=== PATIENT | female | born 1950 | race Caucasian/White ===

== ENCOUNTER → 2018-05-18 | Outpatient (CLI) | payer MEDICARE, OTHER ==
--- NOTE | 2018-05-19 09:19 | MM ---
Reason for exam: screening (asymptomatic). Last mammogram was performed 1 year and 9 months ago. History: Patient is postmenopausal. Took hormonal contraceptives for 1 year beginning at age 21. Physical Findings: A clinical breast exam by your physician is recommended on an annual basis and results should be correlated with mammographic findings. MG Screening Mammo w CAD Bilateral CC and MLO view(s) were taken. Prior study comparison: August 07, 2016, bilateral MG screening mammo w CAD. July 04, 2014, bilateral MG screening mammo w CAD. There are scattered fibroglandular densities. Benign calcifications bilaterally. There is chronic nodularity in the right breast. No significant changes when compared with prior studies. ASSESSMENT: Benign, BI-RAD 2 RECOMMENDATION: Routine screening mammogram of both breasts in 1 year.
--- NOTE | 2018-05-19 18:17 | BD ---
EXAMINATION TYPE: Axial Bone Density DATE OF EXAM: 05/18/2018 COMPARISON: NONE CLINICAL HISTORY: 67-year-old female asymptomatic postmenopausal screening Height: 70 Weight: 229.9 FRAX RISK QUESTIONS: Alcohol (3 or more units per day): no Family History (Parent hip fracture): no Glucocorticoids (More than 3mos): no (Ex: prednisone, prednisolone, methylprednisolone, dexamethasone, and hydrocortisone). History of Fracture in Adulthood: no Secondary Osteoporosis: 1. Type 1 Diabetes: no 2. Hyperthyroidism: no 3. Menopause before 45: unsure 4. Malnutrition: no 5. Chronic liver disease: no Rheumatoid Arthritis: no Current Tobacco Use: yes RISK FACTORS HISTORY OF: Family History of Osteoporosis: no Active: yes Diet low in dairy products/other sources of calcium: yes Postmenopausal woman: unsure Lost more than 2 inches in height since high school: no MEDICATIONS: Lotrel Additional History: EXAM MEASUREMENTS: Bone mineral densitometry was performed using the Jalousier System. Bone mineral density as measured about the Lumbar spine is: ----- L1-L4(G/cm2): 1.467 T Score Values are as follows: ----- L2: 2.5 ----- L3: 3.5 ----- L4: 1.8 ----- L1-L4: 2.4 Bone mineral density : baseline Bone mineral density about the R hip (g/cm2): 0.782 Bone mineral density about the L hip (g/cm2): 0.821 T Score values are as follows: -----R Neck: -1.8 -----L Neck: -1.6 -----R Total: -1.4 -----L Total: -1.0 Bone mineral density : baseline IMPRESSION: Osteopenia (T Score between -2.5 and -1). There is slightly increased risk of fracture and the patient may be considered for treatment. Re-Screen 2-5 years. NOTE: T-SCORE=SD OF THE YOUNG ADULT MEAN.
== END ==
LOC: RADMAMWWP 10:20
PROVIDERS: ATTEND Internal Medicine
DX: Z12.31 Encounter for screening mammogram for malignant neoplasm of breast (principal); M85.80 Other specified disorders of bone density and structure, unspecified site; Z78.0 Asymptomatic menopausal state
CPT/HCPCS: 77067; 77080

== ENCOUNTER → 2019-09-15 | Outpatient (CLI) | payer MEDICARE ==
--- NOTE | 2019-09-15 15:04 | CTL ---
EXAMINATION TYPE: CT Low Dose Lung DATE OF EXAM ORDERED: 09/15/2019 HISTORY: 68-year-old female Personal history of tobacco use. Lung cancer screening CT DLP: [address] CTDI: 2.56 mGy Automated exposure control for dose reduction was used. SCREENING VISIT: Baseline COMPARISON: 12/08/2009 TECHNIQUE: Low dose computed tomography scan was performed through the chest. Coronal and sagittal re constructions performed. Additional coronal MIP reconstruction was generated. CT DIAGNOSTIC QUALITY: Limited, but interpretable FINDINGS: Heart normal size without pericardial effusion. Scattered three-vessel coronary artery calcifications are present. Borderline ectatic ascending aorta at 3.6 cm with moderate atherosclerotic arch calcifications and co nventional arch vessel branching anatomy. No thoracic lymphadenopathy by CT size criteria. Borderline to mildly enlarged caliber to the main right and left pulmonary arteries and 2.6 cm each m ay reflect underlying pulmonary arterial hypertension. Mild to moderate bronchial wall thickening. No consolidation or pleural effusion. No suspicious pulmonary nodule or mass. Visualized upper abdomen shows no gross abnormal. Bones: Moderate degenerative disc disease throughout. Bone island within the mid thoracic spine is un changed. DISH. IMPRESSION: 1. Lung RADS 1 - negative; no suspicious pulmonary nodule or mass. 2. Mild to moderate bronchial wall thickening could represent bronchitis or chronic asthma. 3. Possible underlying pulmonary arterial hypertension. 4. CAD. RECOMMENDATION: 1. Continue annual low-dose lung cancer screening CT. 2. Smoking cessation. FOLLOW UP CT CHEST RECOMMENDATION: [address] LUNG RAD: Lung-Rad 1 Negative
== END | disposition home or self-care (01) ==
LOC: RADCTMAIN 11:04
PROVIDERS: ATTEND Internal Medicine
DX: J98.09 Other diseases of bronchus, not elsewhere classified (principal); I25.10 Atherosclerotic heart disease of native coronary artery without angina pectoris; Z87.891 Personal history of nicotine dependence

== ENCOUNTER → 2020-03-02 | Outpatient (CLI) | payer MEDICARE ==
--- NOTE | 2020-03-03 09:52 | MM ---
Reason for exam: screening (asymptomatic). Last mammogram was performed 1 year and 9 months ago. History: Patient is postmenopausal. Took hormonal contraceptives for 1 year beginning at age 21. Physical Findings: A clinical breast exam by your physician is recommended on an annual basis and results should be correlated with mammographic findings. MG Screening Mammo w CAD Bilateral CC and MLO view(s) were taken. XCCL view(s) were taken of the right breast. Prior study comparison: May 18, 2018, bilateral MG screening mammo w CAD. August 07, 2016, bilateral MG screening mammo w CAD. The breast tissue is heterogeneously dense. This may lower the sensitivity of mammography. There is no discrete abnormality. No significant changes when compared with prior studies. ASSESSMENT: Negative, BI-RAD 1 RECOMMENDATION: Routine screening mammogram of both breasts in 1 year.
== END | disposition home or self-care (01) ==
LOC: RADMAMWWP 07:25
PROVIDERS: ATTEND Internal Medicine
DX: Z12.31 Encounter for screening mammogram for malignant neoplasm of breast (principal)
CPT/HCPCS: 77067

== ENCOUNTER → 2020-07-31 | Outpatient (CLI) | payer MEDICARE ==
--- NOTE | 2020-07-31 15:38 | US ---
EXAMINATION TYPE: US abdomen limited DATE OF EXAM: 07/31/2020 COMPARISON: NONE CLINICAL HISTORY: R10.11 right upper quadrant pain. RUQ pain, nausea x 6 days EXAM MEASUREMENTS: Liver Length: 18.3 cm Gallbladder Wall: 0.2 cm CBD: 0.4 cm Right Kidney: 11.8 x 3.8 x 4.3 cm Pancreas: Tail obscured by overlying bowel gas Liver: wnl Gallbladder: echogenic foci noted posterior wall Evidence for sonographic Chauhan's sign: no CBD: wnl Right Kidney: no evidence of hydronephrosis or mass IMPRESSION: Adherent gallstone or polyp within the gallbladder.
== END | disposition home or self-care (01) ==
LOC: RADUSWWP 14:58
PROVIDERS: ATTEND Internal Medicine
DX: R10.11 Right upper quadrant pain (principal)
CPT/HCPCS: 76705

== ENCOUNTER 2020-08-08 04:35 | Emergency (ER) | payer MEDICARE ==
[2020-08-08] MEDS ORDERED: KETOROLAC 15 MG/ML 1 ML VIAL IVP STA (04:55)
[2020-08-08] MEDS ORDERED: MORPHINE SULFATE 4 MG/ML SYRINGE IV STA (04:55)
[2020-08-08] MEDS ORDERED: SODIUM CHLORIDE 0.9% 1,000 ML IV STA (04:55)
[2020-08-08] MEDS ORDERED: ONDANSETRON 4 MG/2 ML VIAL IVP STA (04:55)
--- NOTE | 2020-08-08 05:03 | ED ---
Recheck HPI <Homero Fermin - Last Filed: 08/08/20 09:10> - General Source: patient, RN notes reviewed, old records reviewed Mode of arrival: wheelchair Limitations: no limitations - History of Present Illness MD Complaint: other (Right upper quadrant abdominal pain) -: days(s) Returns Today for: persistent/worsening pain related to initial visit Symptoms Since Prior Visit: worsening pain Associated Symptoms: none Treatments Prior to Arrival: Given Pain Meds on <Stanley Santoro - Last Filed: 08/09/20 03:20> - General Chief Complaint: Abdominal Pain Stated Complaint: abd pain Time Seen by Provider: 08/08/20 04:36 - History of Present Illness Initial Comments: This is a 61-year-old female DF for evaluation of dull pain epigastric and right upper quadrant abdominal pain with history of gallbladder disease. Patient has had recent history of gallbladder evaluation had ultrasound of right upper quadrant with gallbladder disease. Patient has severe pain at night worse and has been before. Otherwise positive nausea no fevers. No history of surgery no other complaints (Stanley Santoro) - Related Data Home Medications Medication Instructions Recorded Confirmed Dorzolamide-Timol 2.23%/0.68% 1 drop RIGHT EYE BID 08/08/20 08/08/20 [Cosopt] Latanoprost [Xalatan 0.005%] 1 drop RIGHT EYE HS 08/08/20 08/08/20 acetaZOLAMIDE [acetaZOLAMIDE ER] 500 mg PO DAILY 08/08/20 08/08/20 amLODIPine BESYLATE/BENAZEPRIL 1 cap PO DAILY 08/08/20 08/08/20 [Lotrel 10-20 MG] traMADol HCl [Ultram] 50 mg PO BID PRN 08/08/20 08/08/20 Allergies Allergy/AdvReac Type Severity Reaction Status Date / Time bee venom protein (honey bee) Allergy Rash/Hives Verified 08/08/20 08:21 Review of Systems ROS Other: All systems not noted in ROS Statement are negative. <Homero Fermin - Last Filed: 08/08/20 09:10> ROS Other: All systems not noted in ROS Statement are negative. <Stanley Santoro - Last Filed: 08/09/20 03:20> ROS Statement: Those systems with pertinent positive or pertinent negative responses have been documented in the HPI. Past Medical History Past Medical History: Hypertension, Osteoarthritis (OA) History of Any Multi-Drug Resistant Organisms: None Reported Past Surgical History: Hysterectomy Past Psychological History: Depression Smoking Status: Former smoker Past Alcohol Use History: Rare Past Drug Use History: None Reported <Stanley Santoro - Last Filed: 08/09/20 03:20> General Exam Limitations: no limitations General appearance: alert, in no apparent distress Head exam: Present: atraumatic, normocephalic, normal inspection Eye exam: Present: normal appearance, PERRL, EOMI. Absent: scleral icterus, conjunctival injection, periorbital swelling ENT exam: Present: normal exam, mucous membranes moist Neck exam: Present: normal inspection. Absent: tenderness, meningismus, lymph adenopathy Respiratory exam: Present: normal lung sounds bilaterally. Absent: respiratory distress, wheezes, rales, rhonchi, stridor Cardiovascular Exam: Present: regular rate, normal rhythm, normal heart sounds. Absent: systolic murmur, diastolic murmur, rubs, gallop, clicks GI/Abdominal exam: Present: soft, tenderness (Right upper quadrant), normal bowel sounds. Absent: distended, guarding, rebound, rigid Extremities exam: Present: normal inspection, full ROM, normal capillary refill. Absent: tenderness, pedal edema, joint swelling, calf tenderness Back exam: Present: normal inspection Neurological exam: Present: alert, oriented X3, CN II-XII intact Psychiatric exam: Present: normal affect, normal mood Skin exam: Present: warm, dry, intact, normal color. Absent: rash <Stanley Santoro - Last Filed: 08/09/20 03:20> Course <Homero Fermin - Last Filed: 08/08/20 09:10> <Stanley Santoro - Last Filed: 08/09/20 03:20> Vital Signs 08/08/20 08/08/20 08/08/20 04:41 06:30 08:08 Temperature 97.9 F 98.0 F 97.4 F L Pulse Rate 58 L 62 60 Respiratory 16 16 18 Rate Blood Pressure 190/115 182/98 188/95 O2 Sat by Pulse 97 98 97 Oximetry 08/08/20 08:58 Temperature Pulse Rate 50 L Respiratory 18 Rate Blood Pressure 165/95 O2 Sat by Pulse 98 Oximetry - Reevaluation(s) Reevaluation #1: 08/08/20 09:11 No pain, eager for discharge. (Homero Fermin) Medical record is reviewed Patient has significant improvement in symptoms Patient has no recent change in complaints Patient and mother informed of results and questions have been answered Patient feels good for discharge (Stanley Santoro) Medical Decision Making - Lab Data Result diagrams: 08/08/20 05:09 08/08/20 05:09 <Homero Fermin - Last Filed: 08/08/20 09:10> - Lab Data Result diagrams: 08/08/20 05:09 08/08/20 05:09 <Stanley Santoro - Last Filed: 08/09/20 03:20> - Medical Decision Making 61-year-old female presenting with right upper quadrant abdominal pain. I did receive this patient in sign out awaiting CT results. She had a recent gallbladder ultrasound which did show concern for either polyp versus cholelithiasis. CT performed, shows a worsening of the liver suggestive of possible cirrhosis as well as a 3.8 cm abdominal aortic aneurysm without complication. Ultrasound is repeated which shows similar findings, no acute cholecystitis, no dilatation of the common bile duct. Patient is very eager for discharge. She has an appointment with general surgery within the week. She will also follow up with her primary care physician and gastric neurology. She will inform them of this abdominal aortic aneurysm for monitoring. (Homero Fermin) - Lab Data Lab Results 08/08/20 08/08/20 Range/Units 05:09 05:09 WBC 8.5 (3.8-10.6) k/uL RBC 4.85 (3.80-5.40) m/uL Hgb 14.7 (11.4-16.0) gm/dL Hct 44.5 (34.0-46.0) % MCV 91.7 (80.0-100.0) fL MCH 30.3 (25.0-35.0) pg MCHC 33.1 (31.0-37.0) g/dL RDW 12.9 (11.5-15.5) % Plt Count 208 (150-450) k/uL MPV 8.3 Neutrophils % 73 % Lymphocytes % 17 % Monocytes % 5 % Eosinophils % 3 % Basophils % 1 % Neutrophils # 6.2 (1.3-7.7) k/uL Lymphocytes # 1.5 (1.0-4.8) k/uL Monocytes # 0.4 (0-1.0) k/uL Eosinophils # 0.2 (0-0.7) k/uL Basophils # 0.1 (0-0.2) k/uL Sodium 139 (137-145) mmol/L Potassium 3.6 (3.5-5.1) mmol/L Chloride 107 (98-107) mmol/L Carbon Dioxide 26 (22-30) mmol/L Anion Gap 6 mmol/L BUN 11 (7-17) mg/dL Creatinine 0.79 (0.52-1.04) mg/dL Est GFR (CKD-EPI)AfAm 90 (>60 ml/min/1.73 sqM) Est GFR (CKD-EPI)NonAf 78 (>60 ml/min/1.73 sqM) Glucose 113 H (74-99) mg/dL Calcium 9.2 (8.4-10.2) mg/dL Total Bilirubin 0.8 (0.2-1.3) mg/dL AST 21 (14-36) U/L ALT 19 (4-34) U/L Alkaline Phosphatase 65 (38-126) U/L Total Protein 6.7 (6.3-8.2) g/dL Albumin 4.0 (3.5-5.0) g/dL Amylase 31 (30-110) U/L Lipase 36 (23-300) U/L Disposition Is patient prescribed a controlled substance at d/c from ED?: No Time of Disposition: 09:12 <Homero Fermin N - Last Filed: 08/08/20 09:10> <Stanley Santoro - Last Filed: 08/09/20 03:20> Clinical Impression: Abdominal pain, Abdominal aortic aneurysm (AAA), Biliary colic Disposition: HOME SELF-CARE Condition: Good Instructions (If sedation given, give patient instructions): Nonruptured Abdominal Aortic Aneurysm (DC), Abdominal Pain (ED) Additional Instructions: Please inform your primary care physician of the abdominal aortic aneurysm for monitoring. Please follow-up with general surgery regarding your right upper quadrant abdominal pain. Referrals: Edy Allen MD [Primary Care Provider] - 1-2 days Teodora Aguilera MD [STAFF PHYSICIAN] - 1-2 days
[2020-08-08 05:15] LABS: Basophils # (A) 0.1 k/uL (0-0.2); Basophils % (A) 1 %; Eosinophils # (A) 0.2 k/uL (0-0.7); Eosinophils % (A) 3 %; HCT 44.5 % (34.0-46.0); HGB 14.7 gm/dL (11.4-16.0); Lymphocytes # (A) 1.5 k/uL (1.0-4.8); Lymphocytes % (A) 17 %; MCH 30.3 pg (25.0-35.0); MCHC 33.1 g/dL (31.0-37.0); MCV 91.7 fL (80.0-100.0); Mean Platelet Volume 8.3; Monocytes # (A) 0.4 k/uL (0-1.0); Monocytes % (A) 5 %; Neutrophils # (A) 6.2 k/uL (1.3-7.7); Neutrophils % (A) 73 %; Platelet Count 208 k/uL (150-450); RBC 4.85 m/uL (3.80-5.40); RDW 12.9 % (11.5-15.5); WBC 8.5 k/uL (3.8-10.6)
[2020-08-08 05:24] LABS: Calcium 9.2 mg/dL (8.4-10.2); Potassium 3.6 mmol/L (3.5-5.1); Total Bilirubin 0.8 mg/dL (0.2-1.3); Total Protein 6.7 g/dL (6.3-8.2)
--- NOTE | 2020-08-08 05:45 | CT ---
EXAM: CT Abdomen and Pelvis With Intravenous Contrast CLINICAL HISTORY: ITS.REASON CT Reason: pain TECHNIQUE: Axial computed tomography images of the abdomen and pelvis with intravenous contrast. CTDI is 40.77 mGy and DLP is 1604.7 mGy-cm. This CT exam was performed using one or more of the following dose reduction techniques: automated exposure control, adjustment of the mA and/or kV according to patient size, and/or use of iterative reconstruction technique. COMPARISON: 07/31/2020 FINDINGS: Lung bases: No mass. No consolidation. ABDOMEN: Liver: Enlarged with mild nodularity. Gallbladder and bile ducts: Unremarkable. Pancreas: Unremarkable. Spleen: Unremarkable. Adrenals: Unremarkable. Kidneys and ureters: No hydronephrosis. Stomach and bowel: No bowel obstruction. No bowel wall thickening. Mild stool burden in the right large bowel. PELVIS: Appendix: No evidence of appendicitis. Bladder: Unremarkable. Reproductive: Removed. ABDOMEN and PELVIS: Intraperitoneal space: Unremarkable. Bones/joints: No acute fractures. Soft tissues: Unremarkable. Vasculature: 3.8 cm saccular aortic aneurysm. Lymph nodes: No enlarged lymph nodes. IMPRESSION: 3.8 cm saccular aortic aneurysm. Mildly nodular liver suggestive of early cirrhotic morphology.
[2020-08-08 08:11] VITALS: RESP 18; TEMP 97.4
[2020-08-08 08:58] VITALS: BP 165/95; PULSE 50
--- NOTE | 2020-08-08 09:03 | US ---
EXAMINATION TYPE: US gallbladder DATE OF EXAM: 08/08/2020 COMPARISON: CT 08/08/2020, ultrasound abdomen 07/31/2020 CLINICAL HISTORY: ab pain. abd pain on and off for 2 weeks, nausea EXAM MEASUREMENTS: Liver Length: 18.4 cm Gallbladder Wall: 0.2 cm CBD: 0.5 cm Right Kidney: 10.9 x 4.6 x 4.9 cm Pancreas: wnl Liver: subcostal bowel gas, intercostal views show somewhat coarse liver echotexture. Gallbladder: dependent debris that was mobile, possible small sand-like stones seen. Evidence for sonographic Chauhan's sign: no CBD: wnl Right Kidney: wnl There is no ascites. IMPRESSION: There are some limitations to the exam. There may be underlying hepatocellular disease. P ossible tumefactive sludge or small gallstones as noted on prior ultrasound.
== END 2020-08-08 09:15 | disposition home or self-care (01) ==
LOC: EC 04:35
DX: I71.4 Abdominal aortic aneurysm, without rupture (principal); K80.50 Calculus of bile duct without cholangitis or cholecystitis without obstruction; I10 Essential (primary) hypertension; M19.90 Unspecified osteoarthritis, unspecified site; Z79.899 Other long term (current) drug therapy; Z87.891 Personal history of nicotine dependence; Z91.030 Bee allergy status; Z90.710 Acquired absence of both cervix and uterus
CPT/HCPCS: 36415; 80053; 82150; 83690; 85025; 76705; 74177; 99285; 96374; 96375 ×2; 96361; J2270; J2405; J1885; Q9967

== ENCOUNTER → 2021-01-11 | Outpatient (CLI) | payer MEDICARE ==
--- NOTE | 2021-01-11 13:50 | CT ---
EXAMINATION TYPE: CT angio abd aorta w/Runoff DATE OF EXAM: 01/11/2021 HISTORY: Abdominal aortic aneurysm without rupture CT DLP: 2532mGycm Automated Exposure Control for Dose Reduction was Utilized. CONTRAST: CT scan of the abdomen and pelvis is performed without and with IV Contrast, patient injected with 10 0 ml mL of Isovue 370. Three-dimensional reconstructions performed on an alternate workstation. COMPARISON: CT 08/08/2020 FINDINGS: Infrarenal abdominal aorta measures approximately 4.1 cm in greatest AP dimension as compar ed to prior exam when it measured approximately 3.9 cm. Atheromatous changes are present. Common deneen c arteries show stable appearance and are not aneurysmal but show extensive atheromatous change. Inte rnal and external iliac arteries are patent, common femoral, deep and superficial femoral arteries ar e patent, the left superficial femoral artery somewhat more narrow proximally as compared to the righ t. The distal left superficial femoral artery is occluded at the level of Huy's canal, there is re constitution of the popliteal artery above the level of the knee. Trifurcation vessels are patent pro ximally on the left. At the level of the mid leg the anterior tibial artery and the left does not tex w enhancement, peroneal and posterior tibial arteries are thought to be enhancing peripherally, poste rior tibial artery seen to enhance into the foot. On the right the popliteal artery shows atheromatou s change however there is normal enhancement, trifurcation vessels enhance at least to the level of t he mid leg, posterior tibial artery is seen to enhance distally into the foot. No additional aneurysm . LUNG BASES: No significant interval change is appreciated. LIVER/GB: No significant change is appreciated, patient is post cholecystectomy. PANCREAS: No significant abnormality is seen. SPLEEN: No significant abnormality is seen. ADRENALS: No significant abnormality is seen. KIDNEYS: No significant abnormality is seen. BOWEL: No significant interval change is seen. UTERUS/ADNEXA: Uterus is not seen, ovaries remain in place and are unremarkable. LYMPH NODES: No greater than 1cm abdominal or pelvic lymph nodes are appreciated. OSSEOUS STRUCTURES: Degenerative disc changes are noted with facet arthropathy in the lower lumbar sp ine OTHER: Umbilical hernia contains fat.. IMPRESSION: Infrarenal abdominal aortic aneurysm. Peripheral vascular occlusive disease. Postop mary ellen mayen
== END | disposition home or self-care (01) ==
LOC: RADCTMAIN 10:12
PROVIDERS: ATTEND Surgery
DX: I71.4 Abdominal aortic aneurysm, without rupture (principal); I73.9 Peripheral vascular disease, unspecified
CPT/HCPCS: 82565; 84520; 75635; 36415; Q9967

== ENCOUNTER → 2021-03-08 | Outpatient (CLI) | payer MEDICARE ==
[2021-03-08 15:51] LABS: Basophils % (A) 0 %; Eosinophils # (A) 0.3 k/uL (0-0.7); Eosinophils % (A) 3 %; HCT 45.1 % (34.0-46.0); HGB 13.9 gm/dL (11.4-16.0); Lymphocytes # (A) 2.5 k/uL (1.0-4.8); Lymphocytes % (A) 28 %; MCH 29.7 pg (25.0-35.0); MCHC 30.9 g/dL (31.0-37.0); MCV 96.1 fL (80.0-100.0); Mean Platelet Volume 8.8; Monocytes # (A) 0.5 k/uL (0-1.0); Monocytes % (A) 5 %; Neutrophils # (A) 5.6 k/uL (1.3-7.7); Neutrophils % (A) 63 %; Platelet Count 244 k/uL (150-450); RBC 4.69 m/uL (3.80-5.40); RDW 12.9 % (11.5-15.5); WBC 8.9 k/uL (3.8-10.6)
[2021-03-08 16:02] LABS: Potassium 4.3 mmol/L (3.5-5.1)
== END | disposition home or self-care (01) ==
LOC: LABPAT 14:47
PROVIDERS: ATTEND Surgery
DX: Z01.812 Encounter for preprocedural laboratory examination (principal); I71.4 Abdominal aortic aneurysm, without rupture
CPT/HCPCS: 36415; 80051; 82565; 84520; 85025

== ENCOUNTER → 2021-03-29 | Day surgery (SDC) | payer MEDICARE ==
[~2021-03-29] MED LIST: ALPRAZolam 0.25 MG TAB PO PRN; ALPRAZolam 0.5 MG TAB PO PRN; LACTATED RINGERS 1,000 ML IV SCH; SODIUM CHLORIDE 0.9% 1,000 ML in EMPTY BAG 1 BAG IV ONE; ZOLPIDEM 5 MG TAB PO PRN; ceFAZolin 1 GM in SODIUM CHLORIDE 0.9% 250 ML IRRIGATION PRN
[2021-03-29 10:31] VITALS: BP 153/73; PULSE 55; RESP 16; TEMP 98.2
== END ==
LOC: OR 10:05 → EDSTATUS 12:00
PROVIDERS: ATTEND Surgery
DX: Z53.9 Procedure and treatment not carried out, unspecified reason (principal)
CPT/HCPCS: 86850; 86900; 86901

== ENCOUNTER 2021-04-05 09:39 | Inpatient (IN) | payer MEDICARE ==
[2021-04-03 09:44] VITALS: BMI 34.8
[~2021-04-05 09:39] MED LIST changes: -LACTATED RINGERS 1,000 ML IV SCH
[2021-04-05] MEDS ORDERED: SODIUM CHLORIDE 0.9% 1,000 ML IV ONE (09:57)
[2021-04-05] MEDS ORDERED: LIDOCAINE 1% INJ 10MG/ML (20 ML MDV) ONE ×2 (11:51→12:00)
[2021-04-05] MEDS ORDERED: PROTAMINE SULFATE 10 MG/ML 5 ML VIAL IV ONE (12:00)
[2021-04-05] MEDS ORDERED: ROCURONIUM 10 MG/ML (5 ML VIAL) IV ONE (12:00)
[2021-04-05] MEDS ORDERED: SUCCINYLCHOLINE CHLORIDE 100 MG/5 ML SYR IV ONE (12:00)
[2021-04-05] MEDS ORDERED: MIDAZOLAM 2 MG/2 ML VIAL ONE (12:00)
[2021-04-05] MEDS ORDERED: ePHEDrine SULFATE/0.9% NACL/PF 50 MG/5 ML SYRINGE IV ONE (12:00)
[2021-04-05] MEDS ORDERED: HEPARIN SODIUM,PORCINE 10,000 UNIT/ML 1 ML VIAL ONE (12:00)
[2021-04-05] MEDS ORDERED: PROPOFOL 10 MG/ML 20 ML VIAL IV ONE (12:00)
[2021-04-05] MEDS ORDERED: fentaNYL (PF) 50 MCG/ML 2 ML AMP ONE (12:00)
[2021-04-05] MEDS ORDERED: SODIUM CHLORIDE 0.9% 800 ML IV ONE (12:15)
--- NOTE | 2021-04-05 12:16 | P.ANPRN ---
Procedure Note - Anesthesia - Invasive Line Right Arterial Line Time Out Performed: Yes (1104) Date of Procedure: 04/05/21 Time of Procedure: 11:05 Location of Patient: PreOp Preparation: Sterile Prep, Sterile Dressing Arterial Line Location: Radial Ultrasound Used: Yes Purpose - Visualization and Identification of Vasculature: Yes Needle Guage: 20g Image Stored and Saved: Yes Narrative: Central line placement per sterile protocol utilized.
[2021-04-05] MEDS ORDERED: IOPAMIDOL-370 50ML BTL INJ ONE (14:21)
[2021-04-05] MEDS ORDERED: IOPAMIDOL-250 100ML BTL INTRAARTER ONE ×2 (14:21)
[2021-04-05] MEDS ORDERED: IOPAMIDOL-370 100ML BTL INJ ONE (14:21)
[2021-04-05] MEDS ORDERED: LACTATED RINGERS 1,000 ML IV ONE (14:37)
[2021-04-05] MEDS ORDERED: HYDROcodone/APAP 5-325MG 1 EACH TAB PO PRN (15:10)
[2021-04-05] MEDS ORDERED: DOCUSATE 100 MG CAP PO PRN (15:10)
[2021-04-05] MEDS ORDERED: MAG HYDROX/AL HYDROX/SIMETH 30 ML CUP PO PRN (15:10)
[2021-04-05] MEDS ORDERED: ALPRAZolam 0.25 MG TAB PO PRN (15:10)
--- NOTE | 2021-04-05 15:10 | P.OP ---
Date of Procedure: 04/05/21 Preoperative Diagnosis: Saccular 4.1 cm infrarenal abdominal aortic aneurysm Postoperative Diagnosis: Same. Procedure(s) Performed: #1: Ultrasound-guided cannulation femoral artery, bilaterally. #2 percutaneous access and closure of the femoral artery. #3 placement of aortobiiliac endograft ([employer]tronic Endurate II). Anesthesia: HERACLIO Surgeon: Artie Licona Estimated Blood Loss (ml): 30 Pathology: none sent Condition: stable Disposition: PACU Indications for Procedure: Patient is a 70-year-old female who was found be suffering from a 4.1 cm infrarenal dimeric aneurysm which was saccular in morphology. Because the saccular nature of the aneurysm the patient was offered repair. She had undergone CT angiogram was felt to be a good candidate for endovascular repair. The procedure, risk and benefits were discussed with the patient and the patient wished to proceed Description of Procedure: Patient was brought to the cardiac recyclable materials sorter, placed in the supine position and administered general endotracheal anesthesia delivered by the department of anesthesiology. Patient received intravenously administered prophylactic antibiotics in the perioperative phase. The patient's lower thoracic, abdominal/pelvic as well as bilateral inguinal areas were sterilely prepped and draped in usual manner. Lucio catheter then placed to gravity drainage. Utilizing ultrasound the right common femoral artery was identified. Multipurpose needle was utilized to cannulate the artery under ultrasound guidance. Once cannulated Softip guidewire is advanced into the artery. The needle was withdrawn and a 6-Mongolian sheath was placed. Subsequently utilizing standard appointment to Perclose devices were placed and an 8-Mongolian sheath was then positioned. A similar procedure was performed on the contralateral side. Patient was systemically heparinized. From the right a pigtail catheter was advanced to the L1 level. From the left main body Endurate stent graft measuring 25 x 14 x 103 mm was selected and advanced over the guidewire. Angiogram was performed through the pigtail catheter and the origin of the renal arteries was noted bilaterally the stent graft was then deployed until the gate opened. Subsequently the pigtail catheter was exchanged over a guidewire for an angled glide catheter and this was utilized to cannulate the gate. Aparnaergiuliana guidewire was advanced and positioned at the aortic knob. The pigtail catheter was exchanged for the angled glide catheter and an angiogram of the right iliac artery was performed. The origin of the internal iliac artery was identified. A 16 x 13 x 146 mm graft was selected and advanced over the guidewire and deployed. The deployment catheter was exchanged for a 12-Mongolian sheath. Attention was turned to the main body. This was then fully deployed in the main body delivery system was exchanged for a 16-Mongolian sheath which was advanced over the guidewire. Dilator was withdrawn and a pigtail catheter was advanced over the guidewire. Guidewire was withdrawn and a angiogram was performed. The origin of the internal iliac was noted and a 16 x 13 x 124 mm limb was selected and deployed without incident. Sargent balloon was then utilized to dilate the stent graft. There was some narrowing at the aortic bifurcation that was treated with 10 mm x 40 mm balloon dilation catheters utilizing a kissing technique. Subsequently the pigtail catheter was readvanced and completion angiogram was performed. This demonstrated a. Delayed type II lumbar endoleak. There is no evidence of type I or type III endoleak. Was felt that this type II endoleak would eventually thrombose once heparinization was reversed. Patient subsequently was administered 25 mg of protamine. With the above findings noted on the left the sheath was withdrawn and the Perclose was utilized to achieve arterial closure. A similar procedures performed on the contralateral side. Appropriate dressings were applied. Patient tolerated the procedure well awoke without apparent complication was transferred to the recovery area satisfactory and stable condition. Both feet were pink and warm at the completion of the procedure.
--- NOTE | 2021-04-05 16:26 | IR ---
EXAMINATION TYPE: IR stent intravas non coronary DATE OF EXAM: 04/05/2021 CLINICAL HISTORY: AAA TECHNIQUE: Fluoroscopy. COMPARISON: None. FINDINGS: Fluoroscopic guidance was provided during angiogram with stent graft insertion procedure p erformed by Dr. Sorenson. A total of 16.4 minutes of fluoroscopic time was utilized during the proce dure and 0 spot images are saved to PACS. IMPRESSION: As Above.
[2021-04-05] MEDS ORDERED: hydrALAZINE HCL 20 MG/ML 1 ML VIAL IVP PRN (16:41)
[2021-04-05 16:57] LABS: Glucose,Whole Blood 87 mg/dL (75-99)
--- NOTE | 2021-04-05 17:00 | P.CNPUL ---
History of Present Illness Consult date: 04/05/21 Requesting physician: Artie Licona Reason for consult: other Chief complaint: 4.9 cm infrarenal abdominal aortic aneurysm History of present illness: This is a 70-year-old white female patient with a known history of 4.1 cm infrarenal abdominal aortic aneurysm. Because of the saccular nature of the aneurysm patient was offered repair. Patient had undergone CT angiogram and was felt to be a good candidate for endovascular repair. Her history is significant for hypertension, previous history of smoking, and dyslipidemia and previous history of "bladder cholelithiasis, with history of cholecystectomy. Had previous history of hysterectomy. Denies previous history of smoking. Patient underwent cardiac evaluation prior to her surgery. She had a normal Lexiscan stress test, echocardiogram showed normal EF, with mild MR and mild TR. She has had no symptoms of dyspnea, orthopnea, no chest pain, no abdominal pain, no episodes of syncope or near syncope. Patient has no chronic Lung condition, she is not on any inhalers or breathing treatments, she does have history of glaucoma for which she is on eyedrops. On 04/05/2021 patient underwent repair of the infrarenal abdominal aneurysm, placement of aortobiiliac endograft. Following her procedure patient is seen in the recovery room, she still a bit lethargic, but easily arousable, denies any acute distress, hemodynamically she is stable, she is in sinus mechanism, slightly bradycardic with a rate of 40-50 BPM, not requiring any vasopressor support. She is breathing comfortably, currently on 6 L per simple mask with pulse ox of 100%, blood pressure stable 129/76. Bilateral groin incisions clean dry and intact, soft, no evidence of hematoma. Distal pulses are intact. She is awaiting a bed in the intensive care unit where she'll be monitored overnight. Review of Systems All systems: negative Constitutional: Denies chills, Denies fever Eyes: denies blurred vision, denies pain Ears, nose, mouth and throat: Denies headache, Denies sore throat Cardiovascular: Reports claudication, Denies chest pain, Denies shortness of breath Respiratory: Denies cough Gastrointestinal: Denies abdominal pain, Denies diarrhea, Denies nausea, Denies vomiting Genitourinary: Denies dysuria, Denies hematuria Musculoskeletal: Denies myalgias Integumentary: Denies pruritus, Denies rash Neurological: Denies numbness, Denies weakness Psychiatric: Denies anxiety, Denies depression Endocrine: Denies fatigue, Denies weight change Past Medical History Past Medical History: Hyperlipidemia, Hypertension, Osteoarthritis (OA) Additional Past Medical History / Comment(s): GLAUCOMA. AORTA ANEURSYM. PERIPHERAL EDEMA. SHINGLES IN JULY 2020. History of Any Multi-Drug Resistant Organisms: None Reported Past Surgical History: Cholecystectomy, Hysterectomy Additional Past Surgical History / Comment(s): GB @ [facility] IN JUL 2020. BILATERAL CATARACTS/LENS Past Anesthesia/Blood Transfusion Reactions: Motion Sickness Smoking Status: Never smoker - Past Family History Mother Family Medical History: No Reported History Medications and Allergies Home Medications Medication Instructions Recorded Confirmed Type Dorzolamide-Timol 2.23%/0.68% 1 drop RIGHT EYE BID 08/08/20 04/05/21 History [Cosopt] Latanoprost [Xalatan 0.005%] 1 drop RIGHT EYE HS 08/08/20 04/05/21 History acetaZOLAMIDE [acetaZOLAMIDE ER] 500 mg PO DAILY 08/08/20 04/05/21 History amLODIPine BESYLATE/BENAZEPRIL 1 cap PO QAM 08/08/20 04/05/21 History [Lotrel 10-20 MG] Aspirin [Adult Low Dose Aspirin EC] 81 mg PO DAILY 03/27/21 04/05/21 History Rosuvastatin [Crestor] 10 mg PO Q48H 03/27/21 04/05/21 History Acetaminophen Tab [Tylenol Tab] 1,000 mg PO Q6HR 03/29/21 04/05/21 History Naproxen Sodium [Aleve] 220 mg PO BID PRN 03/29/21 04/05/21 History Allergies Allergy/AdvReac Type Severity Reaction Status Date / Time bee venom protein (honey bee) Allergy Rash/Hives Verified 04/05/21 10:55 Physical Exam Vitals: Vital Signs Temp Pulse Pulse Resp BP BP BP 04/05/21 16:33 46 L 16 135/61 129/76 04/05/21 16:18 45 L 16 159/66 131/75 04/05/21 16:02 44 L 16 159/69 127/75 04/05/21 15:46 57 L 16 128/60 135/71 04/05/21 15:32 49 L 16 146/60 143/59 04/05/21 15:15 55 L 16 141/68 126/60 04/05/21 15:04 97.0 F L 60 10 L 150/66 137/63 04/05/21 11:01 98.3 F 44 L 16 144/79 Pulse Ox 04/05/21 16:33 100 04/05/21 16:18 100 04/05/21 16:02 98 04/05/21 15:46 98 04/05/21 15:32 98 04/05/21 15:15 98 04/05/21 15:04 95 04/05/21 11:01 96 Intake and Output 04/05/21 04/05/21 04/05/21 06:59 14:59 22:59 Intake Total 1220 0 Output Total 700 Balance 520 0 Intake: IV 1220 0 Output: Urine 700 Other: Weight 112 kg GENERAL EXAM: Alert, very pleasant, 70-year-old white female, resting comfortably on the gurney in the recovery room, currently on 6 L per support mask the pulse ox of 100% comfortable in no apparent distress. HEAD: Normocephalic/atraumatic. EYES: Normal reaction of pupils, equal size. Conjunctiva pink, sclera white. NOSE: Clear with pink turbinates. THROAT: No erythema or exudates. NECK: No masses, no JVD, no thyroid enlargement, no adenopathy. CHEST: No chest wall deformity. Symmetrical expansion. LUNGS: Equal air entry with no crackles, wheeze, rhonchi or dullness. CVS: Regular rate and rhythm, normal S1 and S2, no gallops, no murmurs, no rubs ABDOMEN: Soft, nontender. No hepatosplenomegaly, normal bowel sounds, no guarding or rigidity. EXTREMITIES: No clubbing, no edema, no cyanosis, 2+ pulses and upper and lower extremities. Bilateral groin punctures are clean dry and intact, soft MUSCULOSKELETAL: Muscle strength and tone normal. SPINE: No scoliosis or deformity SKIN: No rashes CENTRAL NERVOUS SYSTEM: Alert and oriented -3. No focal deficits, tone is normal in all 4 extremities. PSYCHIATRIC: Alert and oriented -3. Appropriate affect. Intact judgment and insight. Assessment and Plan Plan: Assessment: #1. Sacular 4.1 cm infrarenal abdominal aortic aneurysm, status post placement of irritability endograft, postop day 0 on 04/05/2021 #2. Hypertension #3. Former smoker #4. Glaucoma #5. History of cholecystectomy and hysterectomy #6. Peripheral vascular disease with symptoms of claudication #7. Dyslipidemia plan: We'll restart patient's Norvasc May use hydralazine 10 mg IV push every 6 hours when necessary for systolic blood pressure over 150 Continue close hemodynamic monitoring Pain control Monitor for bleeding Antibiotics per vascular surgery GI and DVT prophylaxis per vascular surgery Eyedrops have been reordered, we'll hold off on the acetazolamide Weaning FiO2, Follow-up labs in the morning Continue monitoring in the intensive care unit I performed a history & physical examination of the patient and discussed their management with my nurse practitioner, Nallely Segal. I reviewed the nurse practitioner's note and agree with the documented findings and plan of care. Lung sounds are positive for clear breath sounds throughout the lung bonilla. The findings and the impression was discussed with the patient. I attest to the documentation by the nurse practitioner. Time with Patient: Greater than 30
[2021-04-05] MEDS: DORZOLAMIDE-TIMOLOL 2.23%/0.68 10ML BTL RIGHT EYE SCH (20:05)
[2021-04-05 20:13] LABS: African American GFR (CKD) >90 (>60 ml/min/1.73 sqM); Anion Gap 9 mmol/L; Blood Urea Nitrogen 10 mg/dL (7-17); Calcium 8.9 mg/dL (8.4-10.2); Carbon Dioxide 20 mmol/L (22-30); Chloride 109 mmol/L (98-107); Glucose 152 mg/dL (74-99); Non-African American GFR(CKD) >90 (>60 ml/min/1.73 sqM); Potassium 4.5 mmol/L (3.5-5.1); Sodium 138 mmol/L (137-145)
[2021-04-05 20:37] LABS: Basophils % (A) 0 %; Eosinophils % (A) 0 %; HCT 44.6 % (34.0-46.0); HGB 13.9 gm/dL (11.4-16.0); Lymphocytes # (A) 0.9 k/uL (1.0-4.8); Lymphocytes % (A) 7 %; MCH 30.6 pg (25.0-35.0); MCHC 31.3 g/dL (31.0-37.0); MCV 97.8 fL (80.0-100.0); Mean Platelet Volume 9.5; Monocytes # (A) 0.1 k/uL (0-1.0); Monocytes % (A) 1 %; Neutrophils # (A) 12.3 k/uL (1.3-7.7); Neutrophils % (A) 92 %; Platelet Count 190 k/uL (150-450); RBC 4.55 m/uL (3.80-5.40); RDW 13.7 % (11.5-15.5); WBC 13.5 k/uL (3.8-10.6)
[2021-04-05] MEDS ORDERED: LATANOPROST 0.005% OPHTH DROPS 2.5 ML BTL RIGHT EYE SCH (21:00)
[2021-04-05] MEDS ORDERED: ATORVASTATIN 10 MG TAB PO SCH (21:00)
[2021-04-06 05:10] LABS: Basophils % (A) 0 %; Eosinophils % (A) 0 %; HCT 41.9 % (34.0-46.0); HGB 13.5 gm/dL (11.4-16.0); Lymphocytes % (A) 5 %; MCH 30.7 pg (25.0-35.0); MCHC 32.2 g/dL (31.0-37.0); MCV 95.2 fL (80.0-100.0); Mean Platelet Volume 9.1; Monocytes # (A) 0.5 k/uL (0-1.0); Monocytes % (A) 3 %; Neutrophils # (A) 17.1 k/uL (1.3-7.7); Neutrophils % (A) 92 %; Platelet Count 198 k/uL (150-450); RDW 12.8 % (11.5-15.5); WBC 18.7 k/uL (3.8-10.6)
[2021-04-06 05:34] LABS: African American GFR (CKD) >90 (>60 ml/min/1.73 sqM); Anion Gap 9 mmol/L; Blood Urea Nitrogen 11 mg/dL (7-17); Calcium 9.2 mg/dL (8.4-10.2); Carbon Dioxide 18 mmol/L (22-30); Chloride 109 mmol/L (98-107); Glucose 144 mg/dL (74-99); Non-African American GFR(CKD) >90 (>60 ml/min/1.73 sqM); Potassium 4.1 mmol/L (3.5-5.1); Sodium 136 mmol/L (137-145)
[2021-04-06 07:03] VITALS: RESP 18
[2021-04-06] MEDS: DORZOLAMIDE-TIMOLOL 2.23%/0.68 10ML BTL RIGHT EYE SCH (08:57)
[2021-04-06] MEDS ORDERED: ASPIRIN 81 MG PO SCH (09:00)
[2021-04-06] MEDS ORDERED: lisinopriL 20 MG TAB PO SCH (09:00)
[2021-04-06] MEDS ORDERED: amLODIPine 10 MG TAB PO SCH (09:00)
--- NOTE | 2021-04-06 10:10 | P.DS ---
Providers Date of admission: 04/05/21 09:39 Expected date of discharge: 04/06/21 Attending physician: Artie Licona DO Consults: 04/05/21 07:43 Consult to Anesthesia Routine Consulting Provider: Anesthesia,Services Consult Reason/Comments: General anesthesia for Aortic Stent procedure 04/05/21 15:10 Consult Physician Routine Consulting Provider: Lucina Jain Consult Reason/Comments: Critical care Do you want consulting provider notified?: Yes Primary care physician: Edy Allen MD Hospital Course: This is 70-year-old female who came in yesterday for repair of a saccular 4.1 cm infrarenal abdominal aortic aneurysm. She has a past medical history including hyperlipidemia, hypertension, and osteoarthritis. Patient had undergone outpatient CT angiogram was felt to be a good candidate for endovascular repair due to the saccular nature of the aneurysm. She underwent percutaneous placement of aortobiiliac endograft. She was admitted to the ICU for ob servation overnight. She is postop day #1 and doing well. Assessment: The patient is seen and examined in the ICU up in the bathroom. Her arterial line was removed yesterday. She's been up and voiding. She tolerated a regular diet. She denies any abdominal pain, bleeding from bilateral groin incision sites, no fevers or chills. She denies any chest pain or shortness of breath. Her vital signs and labs are stable. Plan is for discharge home today. Exam: General appearance: The patient is alert, oriented, in no acute distress. HET: Head is normocephalic and atraumatic. Neck: Supple without lymphadenopathy. Trachea midline. Heart: S1 S2. Regular rate and rhythm. Lungs: Clear to auscultation Abdomen: Soft, nontender, nondistended with bowel sounds. Extremities: Normal skin color and turgor. No cyanosis, rash, ulceration, clubbing, or edema. Bilateral groins incisions clean dry and intact. No evidence of hematoma. Palpable bilateral radial and dorsalis pedis pulses. Neurological: No focal deficits. Strength and sensation are grossly intact. Assessment: 1. Postop day #1 repair of 4.1 cm infrarenal abdominal aortic aneurysm with percutaneous access and placement of aortabiiliac endograft 2. Saccular 4.1 cm infrarenal abdominal aortic aneurysm 3. History of hypertension 4. History of hyperlipidemia Plan: Arterial line had artery been discontinued. Discontinue peripheral IV sites. Patient may be discharged home. Instructed patient no heavy lifting, no frequent bending, patient may shower but no tub bathing until further evaluated by Dr. Sorenson. Continue home medications. Follow-up in the office with Dr. Sorenson in one week. The impression and plan of care has been dictated as directed. Dr. Meadows I performed a history and examination of this patient, discussed the same with the dictator. I agree with the dictator's note ,documented as a scribe. Any additional findings or plans will be noted. Procedures: #1 Ultrasound guided cannulation femoral artery, bilaterally #2 Percutaneous access and closure of the femoral artery #3 Placement of aorto biiliac endograft Patient Condition at Discharge: Good Plan - Discharge Summary Discharge Rx Participant: No New Discharge Prescriptions: Continue amLODIPine BESYLATE/BENAZEPRIL [Lotrel 10-20 MG] 1 cap PO QAM Latanoprost [Xalatan 0.005%] 1 drop RIGHT EYE HS Dorzolamide-Timol 2.23%/0.68% [Cosopt] 1 drop RIGHT EYE BID acetaZOLAMIDE [acetaZOLAMIDE ER] 500 mg PO DAILY Aspirin [Adult Low Dose Aspirin EC] 81 mg PO DAILY Naproxen Sodium [Aleve] 220 mg PO BID PRN PRN Reason: Moderate Pain Rosuvastatin [Crestor] 10 mg PO Q48H Acetaminophen Tab [Tylenol] 1,000 mg PO Q6HR Discharge Medication List Dorzolamide-Timol 2.23%/0.68% [Cosopt] 1 drop RIGHT EYE BID 08/08/20 [History] Latanoprost [Xalatan 0.005%] 1 drop RIGHT EYE HS 08/08/20 [History] acetaZOLAMIDE [acetaZOLAMIDE ER] 500 mg PO DAILY 08/08/20 [History] amLODIPine BESYLATE/BENAZEPRIL [Lotrel 10-20 MG] 1 cap PO QAM 08/08/20 [History] Aspirin [Adult Low Dose Aspirin EC] 81 mg PO DAILY 03/27/21 [History] Rosuvastatin [Crestor] 10 mg PO Q48H 03/27/21 [History] Acetaminophen Tab [Tylenol] 1,000 mg PO Q6HR 03/29/21 [History] Naproxen Sodium [Aleve] 220 mg PO BID PRN 03/29/21 [History] Follow up Appointment(s)/Referral(s): Artie Licona DO [Doctor of Osteopathic Medicine] - 1 Week Patient Instructions/Handouts: Endovascular Aneurysm Repair of Abdominal Aorta (DC) Activity/Diet/Wound Care/Special Instructions: No lifting greater than 10 pounds, avoid frequent bending/stooping, patient may shower but no tub bath until further evaluated by Dr. Sorenson. Watch for signs of bleeding and bilateral groin incision sites. Discharge Disposition: HOME SELF-CARE
[2021-04-06 10:19] VITALS: BP 120/97; PULSE 54; TEMP 98.5
--- NOTE | 2021-04-06 10:47 | P.PN ---
Subjective Progress Note Date: 04/06/21 This is a 70-year-old white female patient with a known history of 4.1 cm infrarenal abdominal aortic aneurysm. Because of the saccular nature of the aneurysm patient was offered repair. Patient had undergone CT angiogram and was felt to be a good candidate for endovascular repair. Her history is significant for hypertension, previous history of smoking, and dyslipidemia and previous history of "bladder cholelithiasis, with history of cholecystectomy. Had previous history of hysterectomy. Denies previous history of smoking. Patient underwent cardiac evaluation prior to her surgery. She had a normal Lexiscan stress test, echocardiogram showed normal EF, with mild MR and mild TR. She has had no symptoms of dyspnea, orthopnea, no chest pain, no abdominal pain, no episodes of syncope or near syncope. Patient has no chronic Lung condition, she is not on any inhalers or breathing treatments, she does have history of glaucoma for which she is on eyedrops. On 04/05/2021 patient underwent repair of the infrarenal abdominal aneurysm, placement of aortobiiliac endograft. Following her procedure patient is seen in the recovery room, she still a bit lethargic, but easily arousable, denies any acute distress, hemodynamically she is stable, she is in sinus mechanism, slightly bradycardic with a rate of 40-50 BPM, not requiring any vasopressor support. She is breathing comfortably, currently on 6 L per simple mask with pulse ox of 100%, blood pressure stable 129/76. Bilateral groin incisions clean dry and intact, soft, no evidence of hematoma. Distal pulses are intact. She is awaiting a bed in the intensive care unit where she'll be monitored overnight. Today's Evaluation on 04/06/2021 patient seen in follow-up in intensive care unit, she status post repair of a saccular 4.1 cm infrarenal abdominal aneurysm, today is postoperative day #1. Patient has had no acute events o vernight, she is awake and alert, in no acute distress, she is fully dressed, she is ready for discharge, her vitals have remained stable overnight, she remained in sinus mechanism, this morning the rate is 58 BPM, IV fluids have been discontinued, she reports no specific complaints, no shortness of breath or chest pain, lung sounds are clear, no wheezing or coughing, no chest discomfort, bilateral incision sites are clean dry and intact. Soft, no evidence of hematoma. Labs have been reviewed, white blood cell count is 18.7, hemoglobin is 13.5, played a, is 198, sodium is 136, potassium is 4.1, chloride is 109, CO2 is 18, BUN is 11, creatinine 0.62. Lucio catheter has been discontinued, patient is voiding, she is tolerating ambulation Objective - Vital Signs Vital signs: Vital Signs Temp 98.5 F 04/06/21 08:00 Pulse 54 L 04/06/21 10:00 Resp 18 04/06/21 10:00 BP 120/97 04/06/21 10:00 Pulse Ox 95 04/06/21 08:00 Intake & Output 04/05/21 04/06/21 04/06/21 18:59 06:59 18:59 Intake Total 1520 100 600 Output Total 800 1350 800 Balance 720 -1250 -200 Weight 112 kg 112.2 kg Intake: IV 1220 Oral 300 100 600 Output: Urine 800 1350 800 Other: # Voids 0 - Exam GENERAL EXAM: Alert, very pleasant, 70-year-old white female, sitting up in the recliner, on room air, breathing comfortably, in no acute distress HEAD: Normocephalic/atraumatic. EYES: Normal reaction of pupils, equal size. Conjunctiva pink, sclera white. NOSE: Clear with pink turbinates. THROAT: No erythema or exudates. NECK: No masses, no JVD, no thyroid enlargement, no adenopathy. CHEST: No chest wall deformity. Symmetrical expansion. LUNGS: Equal air entry with no crackles, wheeze, rhonchi or dullness. CVS: Regular rate and rhythm, normal S1 and S2, no gallops, no murmurs, no rubs ABDOMEN: Soft, nontender. No hepatosplenomegaly, normal bowel sounds, no guarding or rigidity. EXTREMITIES: No clubbing, no edema, no cyanosis, 2+ pulses and upper and lower extremities. Bilateral groin punctures are clean dry and intact, soft MUSCULOSKELETAL: Muscle strength and tone normal. SPINE: No scoliosis or deformity SKIN: No rashes CENTRAL NERVOUS SYSTEM: Alert and oriented -3. No focal deficits, tone is normal in all 4 extremities. PSYCHIATRIC: Alert and oriented -3. Appropriate affect. Intact judgment and insight. - Labs CBC & Chem 7: 04/06/21 04:32 04/06/21 04:32 Labs: Abnormal Lab Results - Last 24 Hours (Table) 04/05/21 04/05/21 04/06/21 Range/Units 19:30 19:30 04:32 WBC 13.5 H (3.8-10.6) k/uL Neutrophils # 12.3 H (1.3-7.7) k/uL Lymphocytes # 0.9 L (1.0-4.8) k/uL Sodium 136 L (137-145) mmol/L Chloride 109 H 109 H (98-107) mmol/L Carbon Dioxide 20 L 18 L (22-30) mmol/L Glucose 152 H 144 H (74-99) mg/dL 04/06/21 Range/Units 04:32 WBC 18.7 H (3.8-10.6) k/uL Neutrophils # 17.1 H (1.3-7.7) k/uL Lymphocytes # (1.0-4.8) k/uL Sodium (137-145) mmol/L Chloride (98-107) mmol/L Carbon Dioxide (22-30) mmol/L Glucose (74-99) mg/dL Assessment and Plan Plan: Assessment: #1. Sacular 4.1 cm infrarenal abdominal aortic aneurysm, status post placement of endovascular endograft, postop day 0 on 04/05/2021, post-op #1 #2. Hypertension #3. Former smoker #4. Glaucoma #5. History of cholecystectomy and hysterectomy #6. Peripheral vascular disease with symptoms of claudication #7. Dyslipidemia plan: Has had no acute events overnight Vital signs are stable No evidence of bleeding Today's labs have been noted today's hemoglobin has been noted Bilateral groin sites are clean dry and intact, soft Denies any pulmonary complaints, no chest pain, Discharge is pending for today I performed a history & physical examination of the patient and discussed their management with my nurse practitioner, Nallely Segal. I reviewed the nurse practitioner's note and agree with the documented findings and plan of care. Lung sounds are positive for clear breath sounds throughout the lung bonilla. The findings and the impression was discussed with the patient. I attest to the documentation by the nurse practitioner. Time with Patient: Less than 30
== END 2021-04-06 10:50 | disposition home or self-care (01) | DRG 269 ==
LOC: 2ORMAIN 09:39 → 2SICU 15:15
PROVIDERS: ADMIT Surgery; ATTEND Surgery
PROC: 04V03DZ Restriction of Abdominal Aorta with Intraluminal Device, Percutaneous Approach (ICD-10-PCS; principal; 2021-04-05 12:00)
DX: I71.4 Abdominal aortic aneurysm, without rupture (principal); I97.89 Other postprocedural complications and disorders of the circulatory system, not elsewhere classified; E78.5 Hyperlipidemia, unspecified; I73.9 Peripheral vascular disease, unspecified; I10 Essential (primary) hypertension; M19.90 Unspecified osteoarthritis, unspecified site; H40.9 Unspecified glaucoma; Z79.82 Long term (current) use of aspirin; Z79.899 Other long term (current) drug therapy; Z87.891 Personal history of nicotine dependence; Z90.49 Acquired absence of other specified parts of digestive tract; Z87.19 Personal history of other diseases of the digestive system; Z90.710 Acquired absence of both cervix and uterus; Z87.42 Personal history of other diseases of the female genital tract; Z86.19 Personal history of other infectious and parasitic diseases; Z98.42 Cataract extraction status, left eye; Z98.41 Cataract extraction status, right eye; Z96.1 Presence of intraocular lens; Z98.890 Other specified postprocedural states; Z91.030 Bee allergy status; Z82.49 Family history of ischemic heart disease and other diseases of the circulatory system; Z83.3 Family history of diabetes mellitus; Z82.5 Family history of asthma and other chronic lower respiratory diseases; Y83.8 Other surgical procedures as the cause of abnormal reaction of the patient, or of later complication, without mention of misadventure at the time of the procedure; Y92.234 Operating room of hospital as the place of occurrence of the external cause
CPT/HCPCS: 34705; 80048; 85025; 86850; 86900; 86901

== ENCOUNTER → 2021-06-21 | Outpatient (CLI) | payer MEDICARE ==
[2021-06-21 14:57] LABS: Basophils # (A) 0.1 k/uL (0-0.2); Basophils % (A) 1 %; Eosinophils # (A) 0.3 k/uL (0-0.7); Eosinophils % (A) 3 %; HGB 13.4 gm/dL (11.4-16.0); Lymphocytes # (A) 2.5 k/uL (1.0-4.8); Lymphocytes % (A) 27 %; MCH 29.2 pg (25.0-35.0); MCHC 31.2 g/dL (31.0-37.0); MCV 93.6 fL (80.0-100.0); Mean Platelet Volume 8.2; Monocytes # (A) 0.4 k/uL (0-1.0); Monocytes % (A) 5 %; Neutrophils # (A) 5.7 k/uL (1.3-7.7); Neutrophils % (A) 62 %; Platelet Count 261 k/uL (150-450); RDW 13.1 % (11.5-15.5); WBC 9.1 k/uL (3.8-10.6)
[2021-06-21 15:04] LABS: Potassium 4.5 mmol/L (3.5-5.1)
== END | disposition home or self-care (01) ==
LOC: LABPAT 14:10
PROVIDERS: ATTEND Surgery
DX: Z01.812 Encounter for preprocedural laboratory examination (principal); I70.213 Atherosclerosis of native arteries of extremities with intermittent claudication, bilateral legs
CPT/HCPCS: 80051; 82565; 84520; 85025

== ENCOUNTER 2021-07-02 08:24 | Inpatient (IN) | payer MEDICARE ==
[2021-06-27 14:12] VITALS: BMI 34.4
[~2021-07-02 08:24] MED LIST changes: -ALPRAZolam 0.25 MG TAB PO PRN; -ALPRAZolam 0.5 MG TAB PO PRN; +DEXAMETHASONE SOD PHOSPHATE 4 MG/ML 1 ML VIAL IV ONE; +HEPARIN SODIUM,PORCINE/PF 5,000 UNIT/0.5 ML SYRINGE SQ PRN; +HYDROmorphone 0.5 MG/0.5 ML SYRINGE IVP PRN; +LACTATED RINGERS 1,000 ML IV SCH; +MIDAZOLAM 2 MG/2 ML VIAL IV PRN; +ONDANSETRON 4 MG/2 ML VIAL IVP ONE; -SODIUM CHLORIDE 0.9% 1,000 ML in EMPTY BAG 1 BAG IV ONE; -ZOLPIDEM 5 MG TAB PO PRN; -ceFAZolin 1 GM in SODIUM CHLORIDE 0.9% 250 ML IRRIGATION PRN
[2021-07-02] MEDS ORDERED: LIDOCAINE 1% (10MG/ML) FOR IV START INTRADERMA ONE (09:25)
[2021-07-02 09:59] LABS: INR 0.9 (<1.2); Partial Thromboplastin Time 24.2 sec (22.0-30.0); Prothrombin Time 10.2 sec (9.0-12.0)
[2021-07-02] MEDS ORDERED: MIDAZOLAM 2 MG/2 ML VIAL IVP ONE (10:05)
[2021-07-02] MEDS ORDERED: fentaNYL (PF) 50 MCG/ML 2 ML AMP IVP ONE (10:05)
--- NOTE | 2021-07-02 10:44 | P.GSHP ---
History of Present Illness H&P Date: 07/02/21 Chief Complaint: Lifestyle limiting left calf claudication. Patient is a 70-year-old female who originally presented for evaluation reference to a chief complaint of left calf claudication. This interfered with her normal activities of daily living. During workup of this she was found to be suffering from a 4.5 cm saccular infrarenal abdominal aortic aneurysm for which he underwent stent graft repair and treatment of an associated left iliac artery stenosis. In spite of this the patient's symptoms of claudication persisted. She is also found to be suffering from a left SFA occlusion. We discussed conservative management versus atherectomy attempt versus bypass. The patient was originally scheduled for atherectomy however changed her mind and wished to proceed with bypass. Patient is now offered a surgical bypass to - EENT Eyes: denies blurred vision, denies bulging eye, denies decreased vision, denies diplopia, denies discharge, denies dry eye, denies irritation, denies itching, denies pain, denies photophobia Ears: deny: decreased hearing, ear discharge, earache, tinnitus Ears, nose, mouth and throat: Reports as per HPI - Cardiovascular Cardiovascular: Reports as per HPI (No history of significant cardiac disease. She was cleared for her previous endovascular surgery for surgical intervention.), Denies chest pain, Denies shortness of breath - Respiratory Respiratory: Reports as per HPI (No history of shortness of breath.) Past Medical History Past Medical History: Eye Disorder, Hyperlipidemia, Hypertension, Osteoarthritis (OA), Vascular Disorder Additional Past Medical History / Comment(s): GLAUCOMA. hx AORTA ANEURSYM. swelling in left lower leg, SHINGLES IN JULY 2020. varicose veins, "ruff skin on face", History of Any Multi-Drug Resistant Organisms: None Reported Past Surgical History: Cholecystectomy, Hysterectomy Additional Past Surgical History / Comment(s): 03/2021 repair of abdominal aortic aneurysm, BILATERAL CATARACTS/LENS Past Anesthesia/Blood Transfusion Reactions: Motion Sickness Smoking Status: Former smoker (Quit smoking 1.5 years prior) - Past Family History Mother Family Medical History: No Reported History Sister(s) Family Medical History: Cancer Medications and Allergies Home Medications Medication Instructions Recorded Confirmed Type Dorzolamide-Timol 2.23%/0.68% 1 drop RIGHT EYE BID 08/08/20 07/02/21 History [Cosopt] Latanoprost [Xalatan 0.005%] 1 drop RIGHT EYE HS 08/08/20 07/02/21 History amLODIPine BESYLATE/BENAZEPRIL 1 cap PO QAM 08/08/20 07/02/21 History [Lotrel 10-20 MG] Aspirin [Adult Low Dose Aspirin EC] 81 mg PO DAILY 03/27/21 07/02/21 History Rosuvastatin [Crestor] 10 mg PO Q48H 03/27/21 07/02/21 History Naproxen Sodium [Aleve] 220 mg PO BID PRN 03/29/21 07/02/21 History Acetaminophen [Tylenol] 650 mg PO Q4H PRN 07/02/21 07/02/21 History Allergies Allergy/AdvReac Type Severity Reaction Status Date / Time bee venom protein (honey bee) Allergy Rash/Hives Verified 07/02/21 09:11 Surgical - Exam Osteopathic Statement: *. No significant issues noted on an osteopathic structural exam other than those noted in the History and Physical/Consult. Vital Signs Temp Pulse Resp BP Pulse Ox 98.0 F 58 L 16 173/74 100 07/02/21 09:17 07/02/21 09:17 07/02/21 09:17 07/02/21 09:17 07/02/21 09:17 - General well developed, well nourished, no distress - Eyes PERRL - Neck no no masses, no no bruits, no trachea midline, no no lymphadectomy, no no venous distension, no deviated trachea, no diffuse goiter, no limited ROM, no other - Respiratory normal expansion, normal respiratory effort, clear to percussion, clear to auscultation - Cardiovascular Rhythm: regular Heart Sounds: normal: S1 Femoral pulses are intact bilaterally while the popliteal, DP and PT pulses are absent on the left. There is no cyanosis or edema left lower extremity. 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 Status post stent graft repair of saccular infrarenal dimeric aneurysm. History of tobacco use with cessation proximal 1.5 years prior. History of hypertension History of dyslipidemia. Plan: left femoral-popliteal bypass graft. Procedure, risk and benefits have been discussed with the patient. Patient wished to proceed.
[2021-07-02] MEDS ORDERED: LIDOCAINE 1% INJ 10MG/ML (20 ML MDV) ONE (10:47)
[2021-07-02] MEDS ORDERED: PROPOFOL 10 MG/ML 20 ML VIAL IV ONE (10:47)
[2021-07-02] MEDS ORDERED: SUCCINYLCHOLINE CHLORIDE 100 MG/5 ML SYR IV ONE (10:47)
[2021-07-02] MEDS ORDERED: NEOSTIGMINE 1 MG/ML 10 ML VIAL ONE (10:47)
[2021-07-02] MEDS ORDERED: ePHEDrine 50 MG/ML 1 ML AMP ONE (10:47)
[2021-07-02] MEDS ORDERED: ROCURONIUM 10 MG/ML (5 ML VIAL) IV ONE (10:47)
[2021-07-02] MEDS ORDERED: MIDAZOLAM 2 MG/2 ML VIAL ONE (10:47)
[2021-07-02] MEDS ORDERED: PROTAMINE SULFATE 10 MG/ML 5 ML VIAL IV ONE (10:47)
[2021-07-02] MEDS ORDERED: HEPARIN SODIUM,PORCINE 10,000 UNIT/ML 1 ML VIAL ONE (10:47)
[2021-07-02] MEDS ORDERED: GLYCOPYRROLATE 0.2 MG/ML 2 ML VIAL ONE (10:47)
[2021-07-02] MEDS ORDERED: fentaNYL (PF) 50 MCG/ML 2 ML AMP ONE (10:47)
[2021-07-02] MEDS ORDERED: ceFAZolin 2 GM in SODIUM CHLORIDE 0.9% 500 ML 500 ML IRRIGATION ONE (11:29)
[2021-07-02] MEDS ORDERED: HEPARIN SODIUM (1,000 UNIT/ML) 10,000 UNIT in SODIUM CHLORIDE 0.9% 1,000 ML IRRIGATION ONE (11:29)
[2021-07-02] MEDS ORDERED: LACTATED RINGERS 1,000 ML IV ONE ×2 (12:34→15:53)
[2021-07-02] MEDS ORDERED: GELATIN SPONGE,ABSORB (SMALL) 1 EACH SPONGE TOPICAL ONE (13:49)
[2021-07-02] MEDS ORDERED: THROMBIN (BOVINE) 5,000 UNIT VIAL TOPICAL ONE (13:49)
[2021-07-02] MEDS ORDERED: MORPHINE SULFATE 2 MG/ML SYRINGE IVP PRN (14:46)
[2021-07-02] MEDS ORDERED: HYDROcodone/APAP 5-325MG 1 EACH TAB PO PRN ×2 (14:46)
[2021-07-02] MEDS ORDERED: MAG HYDROX/AL HYDROX/SIMETH 30 ML CUP PO PRN (14:46)
--- NOTE | 2021-07-02 15:06 | P.OP ---
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 Postoperative Diagnosis: Same. Procedure(s) Performed: Left femoral-popliteal bypass graft utilizing 8 mm PTFE bypass conduit. Left common femoral thromboendarterectomy. Anesthesia: GETA Surgeon: Artie Licona Estimated Blood Loss (ml): 150 Urine output (ml): 180 Pathology: other (Left common femoral plaque) Condition: stable Disposition: PACU Indications for Procedure: Patient is a 70-year-old female who had originally presented with a chief complaint of left calf claudication which she deemed is lifestyle limiting for her. Physical exam at that time demonstrated femoral pulses to be intact bilaterally while the left popliteal DP and PT pulses were absent. She did undergo arterial Doppler which demonstrated an YOSEF on the left is 0.38. She did undergo CT angiogram which demonstrated a 4.5 cm saccular abdominal aortic aneurysm, which was subsequently repaired. She continues with her complaint of lifestyle limiting claudication. We have discussed atherectomy versus bypass versus continued medical management. Originally patient had wished to proceed with atherectomy although shortly thereafter changed her mind and wished to proceed with bypass. The procedure, risk and benefits were discussed. Was felt reasonable to utilize PTFE as we could stay above the knee for bypass purposes. Description of Procedure: Patient is brought the upper and placed in supine position Mr. general inhalational anesthesia delivered by the department of anesthesiology. Patient received 2 g of Ancef intravenously in the perioperative phase for prophylactic antibiotic therapy. Lucio catheter is placed to gravity drainage. The left lower extremity and lower abdominal areas were sterilely prepped and draped in usual manner. A skin incision overlying the left femoral artery was made carried down through subjacent tissues. Hemostasis utilizing electrocautery. The lymphatic layer was divided laterally and swept medially exposing the femoral sheath. The common femoral artery at the inguinal ligament was identified and encircled with Vesseloops after being dissected free of investing tissues. Vesseloops were also placed about the origins of the superficial femoral and the profundus femoris arteries. The wound was then packed with antibiotic-soaked gauze. Attention was turned to the medial aspect of the lower thigh area were skin incision was made carried down through the subcutaneous tissues. Care was taken to avoid injury to the great saphenous vein. The incision was deepened through the subcutaneous tissues and entrance was gained in the popliteal space. The distal portion of the SFA and proximal portion of the popliteal artery were identified, dissected free of investing tissues and encircled Vesseloops. An 8 mm PTFE graft was selected and tunneled in a subsartorial manner between the 2 incisions. The patient was systemically heparinized and ACT levels were drawn to assure adequate anticoagulation therapy. Vessel loops surrounding the common, profundus and superficial femoral arterial segments were drawn closed. Arteriotomy was made in the common extended down to the level of the bifurcation of the common into the profundus and superficial femoral segments. Heavy plaque burden was identified and to improve flow into the profundus a femoral endarterectomy was performed. This resulted in improvement backbleeding through the profundus. The profundus and superficial femoral common femoral arteries are then flushed with heparinized saline solution. The PTFE graft was spatulated to match the arteriotomy and an end-to-side anastomosis was created with 6-0 Prolene suture placed in running fashion. Just prior to completion of the anastomotic line the superficial femoral, profundus femoris and common femoral arteries were flushed and no thrombus was retrieved. The anastomotic line was completed and flow restored into the graft and eventually into the profundus femoris. Some bleeding points in the arterial wall were encountered and these were controlled with 6-0 Prolene suture. Once controlled excellent pulse in the graft was identified. Topical thrombin Gelfoam were placed about the anastomotic line to help assure hemostasis. Attention was turned to the lower leg incision. The Vesseloops surrounding the optical artery were drawn closed and arteriotomy was made in the artery and extended with Pott Mcgrath scissors. Backbleeding was evident and the artery was flushed with heparinized saline solution. The graft was cut the appropriate jorge gth and spatulated to match arteriotomy. End-to-side anastomosis between the graft and the artery was completed with 5-0 Prolene suture. Just prior to completion of the anastomotic line the graft was flushed and the artery backbled and no thrombus was retrieved in either instance. The anastomotic line was then completed and flow was started through the graft and into the tanana arterial bed. Excellent pulse was identified in the popliteal artery distant to the anastomosis. Later a palpable posterior tibial pulse was noted. Both wounds were irrigated with antibiotic containing solution and inspected for hemostasis. This was judged be adequate. The patient did receive 25 mg protamine to help reverse upper effect. In the groin the wound was closed in multiple layers with 2-0 Vicryl suture and dermis was reapproximated utilizing 4-0 Monocryl placed in running intradermal manner. A Provina was then placed over the wound. The wound at the lower thigh area was closed with 2-0 Vicryl suture. Dermis was reapproximated utilizing 4-0 Monocryl placed in running intradermal fashion. Appropriate dressing was applied. Patient tolerated procedure well and was taken to the recovery area in satisfactory and stable condition.
--- NOTE | 2021-07-02 15:55 | XR ---
EXAMINATION TYPE: XR knee limited LT DATE OF EXAM: 07/02/2021 COMPARISON: None HISTORY: Foreign body TECHNIQUE: 2 view left knee FINDINGS: Curvilinear radiopaque foreign body is within the medial soft tissues at the level of the m etaphysis of the femur. Note is made of vascular clips on the right. IMPRESSION: 1. Radiopaque foreign body within the medial soft tissues right knee at the level of the metaphysis of the femur.
[2021-07-02] MEDS: ASPIRIN 325 MG TAB PO SCH (16:42)
[2021-07-02] MEDS: LACTATED RINGERS 1,000 ML IV SCH (16:45)
[2021-07-02] MEDS ORDERED: ATORVASTATIN 20 MG TAB PO SCH (21:00)
[2021-07-03 01:02] VITALS: RESP 18
[2021-07-03 08:38] LABS: Basophils % (A) 0 %; Eosinophils % (A) 0 %; HCT 36.6 % (34.0-46.0); HGB 11.7 gm/dL (11.4-16.0); Lymphocytes # (A) 2.2 k/uL (1.0-4.8); Lymphocytes % (A) 17 %; MCH 29.9 pg (25.0-35.0); MCV 93.7 fL (80.0-100.0); Mean Platelet Volume 8.5; Monocytes # (A) 0.9 k/uL (0-1.0); Monocytes % (A) 7 %; Neutrophils # (A) 9.9 k/uL (1.3-7.7); Neutrophils % (A) 75 %; Platelet Count 214 k/uL (150-450); RBC 3.91 m/uL (3.80-5.40); RDW 13.4 % (11.5-15.5); WBC 13.2 k/uL (3.8-10.6)
[2021-07-03 08:50] LABS: African American GFR (CKD) >90 (>60 ml/min/1.73 sqM); Anion Gap 7 mmol/L; Blood Urea Nitrogen 13 mg/dL (7-17); Calcium 9.1 mg/dL (8.4-10.2); Carbon Dioxide 26 mmol/L (22-30); Chloride 104 mmol/L (98-107); Glucose 111 mg/dL (74-99); Non-African American GFR(CKD) 84 (>60 ml/min/1.73 sqM); Potassium 4.5 mmol/L (3.5-5.1); Sodium 137 mmol/L (137-145)
[2021-07-03] MEDS ORDERED: DOCUSATE 100 MG CAP PO SCH (09:00)
[2021-07-03] MEDS ORDERED: ENOXAPARIN 40 MG/0.4 ML SYRINGE SQ SCH (09:00)
[2021-07-03] MEDS: LACTATED RINGERS 1,000 ML IV SCH ×2 (09:24→11:56)
[2021-07-03] MEDS: ASPIRIN 325 MG TAB PO SCH (09:26)
[2021-07-03 09:47] VITALS: BP 142/77; PULSE 63; TEMP 97.8
--- NOTE | 2021-07-03 11:25 | P.DS ---
Providers Date of admission: 07/02/21 08:24 Attending physician: Artie Licona DO Primary care physician: Edy Allen MD Hospital Course: This is a 70-year-old female with a past medical history including hypertension, hyperlipidemia, abdominal aortic aneurysm with repair of saccular infrarenal abdominal aortic aneurysm and peripheral arterial disease with left calf claudication. Patient had a left superficial femoral artery occlusion and came in yesterday for elective left femoral-popliteal bypass graft and left common femoral thromboendarterectomy. Patient is postop day 1. States that she is in no pain. She has a Prevena dressing to the left groin. The incision on her distal aspect of the medial thigh is well approximated without any bleeding or drainage. Patient has a faint palpable posterior tibialis pulse. Multiphasic signal. Should has been up and ambulating in the hallway. She is voided. She is eating and tolerating a regular diet. Physical exam: General appearance: The patient is alert, oriented, in no acute distress. HET: Head is normocephalic and atraumatic. Pupils are equal and reactive. Neck: Supple without lymphadenopathy. Trachea midline. Heart: S1 S2. Regular rate and rhythm. Lungs: Clear to auscultation. Abdomen: Soft, nontender, nondistended. Extremities: No lower extremity edema. Faint palpable posterior tibialis pulse. Multiphasic Doppler signal. Patient is able to freely wiggle her toes and move her foot. Prevena dressing in left groin intact. Incision to left thigh well approximated, CDI. Neurological: No focal deficits. Strength and sensation are grossly intact. The impression and plan of care has been dictated as directed. Dr. Meadows I performed a history and examination of this patient, discussed the same with the dictator. I agree with the dictator's note ,documented as a scribe. Any additional findings or plans will be noted. Procedures: Left femoral-popliteal bypass graft using 8 mm PTFE bypass conduit Left common femoral thrombo-endarterectomy Patient Condition at Discharge: Good Plan - Discharge Summary Discharge Rx Participant: Yes New Discharge Prescriptions: Continue amLODIPine BESYLATE/BENAZEPRIL [Lotrel 10-20 MG] 1 cap PO QAM Latanoprost [Xalatan 0.005%] 1 drop RIGHT EYE HS Dorzolamide-Timol 2.23%/0.68% [Cosopt] 1 drop RIGHT EYE BID Aspirin [Adult Low Dose Aspirin EC] 81 mg PO DAILY Naproxen Sodium [Aleve] 220 mg PO BID PRN PRN Reason: Moderate Pain Rosuvastatin [Crestor] 10 mg PO Q48H Acetaminophen [Tylenol] 650 mg PO Q4H PRN PRN Reason: Pain Discharge Medication List Dorzolamide-Timol 2.23%/0.68% [Cosopt] 1 drop RIGHT EYE BID 08/08/20 [History] Latanoprost [Xalatan 0.005%] 1 drop RIGHT EYE HS 08/08/20 [History] amLODIPine BESYLATE/BENAZEPRIL [Lotrel 10-20 MG] 1 cap PO QAM 08/08/20 [History] Aspirin [Adult Low Dose Aspirin EC] 81 mg PO DAILY 03/27/21 [History] Rosuvastatin [Crestor] 10 mg PO Q48H 03/27/21 [History] Naproxen Sodium [Aleve] 220 mg PO BID PRN 03/29/21 [History] Acetaminophen [Tylenol] 650 mg PO Q4H PRN 07/02/21 [History] Follow up Appointment(s)/Referral(s): Ravi Meadows DO [STAFF PHYSICIAN] - 07/10/21 2:45 pm (FRIDAY ) Patient Instructions/Handouts: Femoropopliteal Bypass (DC), Negative Pressure Wound Therapy (DC) Activity/Diet/Wound Care/Special Instructions: Avoid any strenuous activity or heavy lifting greater than 5-10 pounds. Keep Prevena wound dressing in place to left groin for 7 days and then may discard. Watch incisions for drainage, redness, increased pain. Call office if any temperature greater than 100.4. Continue current medications. Discharge Disposition: HOME SELF-CARE
== END 2021-07-03 12:17 | disposition home or self-care (01) | DRG 254 ==
LOC: 2ORMAIN 08:24 → 3SCARD 15:47
PROVIDERS: ADMIT Surgery; ATTEND Surgery
PROC: 04CL0ZZ Extirpation of Matter from Left Femoral Artery, Open Approach (ICD-10-PCS; 2021-07-02)
PROC: 041L0JL Bypass Left Femoral Artery to Popliteal Artery with Synthetic Substitute, Open Approach (ICD-10-PCS; principal; 2021-07-02 10:15)
DX: I70.212 Atherosclerosis of native arteries of extremities with intermittent claudication, left leg (principal); E78.5 Hyperlipidemia, unspecified; I10 Essential (primary) hypertension; Z86.79 Personal history of other diseases of the circulatory system; Z79.82 Long term (current) use of aspirin; Z87.891 Personal history of nicotine dependence; Z90.710 Acquired absence of both cervix and uterus; H40.9 Unspecified glaucoma; Z20.822 Contact with and (suspected) exposure to COVID-19
CPT/HCPCS: 80048; 85025; 85610; 85730; 86850; 86900; 86901; 87635; 88304; 88311

== ENCOUNTER → 2022-03-19 | Outpatient (CLI) | payer MEDICARE ==
[2022-03-19 18:25] LABS: ALT 10 U/L (8-44); AST 23 U/L (13-35); Chol/HDL Ratio 2.02 Ratio; LDL Cholesterol,Calculated 60.7 mg/dL (0.0-131.0); VLDL Calculation 12.38 mg/dL (5.00-40.00)
== END | disposition home or self-care (01) ==
LOC: LABWHC1 10:57
PROVIDERS: ATTEND Internal Medicine Interventional Cardiology
DX: E78.2 Mixed hyperlipidemia (principal)
CPT/HCPCS: 36415; 80061; 84450; 84460

== ENCOUNTER → 2022-12-06 | Outpatient (CLI) | payer MEDICARE ==
--- NOTE | 2022-12-06 16:05 | BD ---
EXAMINATION TYPE: Axial Bone Density DATE OF EXAM: 12/06/2022 CLINICAL HISTORY: 72 years old Female. ICD-10 CODE: Z78.0 SCREENING Height: 68" Weight: 255.1 FRAX RISK QUESTIONS: Alcohol (3 or more units per day): No Family History (Parent hip fracture): No Glucocorticoids (More than 3mos): No (Ex: prednisone, prednisolone, methylprednisolone, dexamethasone, and hydrocortisone). History of Fracture in Adulthood: No Secondary Osteoporosis: 1. Type 1 Diabetes: No 2. Hyperthyroidism: No 3. Menopause before 45: No 4. Malnutrition: No 5. Chronic liver disease: No Rheumatoid Arthritis: Unknown Current Tobacco Use: No RISK FACTORS HISTORY OF: Hip Fracture (Right/Left): No Spine Fracture: No History of Wrist Fracture: No Surgery to Spine/Hip(right/left)/Wrist (right/left): No Family History of Osteoporosis: No Active: No Diet low in dairy products/other sources of calcium: Yes Postmenopausal woman: Yes Lost more than 2 inches in height since high school: Yes Frequent falls: No Poor Health: No Hyperparathyroidism: No Adrenal Insufficiency: No MEDICATIONS: Prednisone or other steroids: No Thyroid Medications: No Osteoporosis Medications: No Additional Medications: Lotro, Lasiks as needed, Crestor, Melatonin Additional History: AAA Surgery 2 years ago, stent placement may have been over the Lspine so a non-d ominant wrist was scanned as well EXAM MEASUREMENTS: Bone mineral densitometry was performed using the avVenta System. Bone mineral density as measured about the Lumbar spine is: ----- L1-L4(G/cm2): 1.412 T Score Values are as follows: ----- L1: 2.2 ----- L2: 1.7 ----- L3: 2.2 ----- L4: 1.7 ----- L1-L4: 1.9 Z Score Values are as follows: ----- L1: 2.8 ----- L2: 2.2 ----- L3: 2.7 ----- L4: 2.2 ----- L1-L4: 2.5 Bone mineral density has: decreased 3.7% since study of: 05/18/2018 Bone mineral density about the R hip (g/cm2): 0.792 Bone mineral density about the L hip (g/cm2): 0.878 T Score values are as follows: -----R Neck: -2.2 -----L Neck: -1.7 -----R Total: -1.7 -----L Total: -1.0 Z Score values are as follows: -----R Neck: -1.2 -----L Neck: -1.0 -----R Total: -1. -----L Total: -0.3 Bone mineral density has: decreased -2.5% since study of: 05/18/2018 Bone mineral density about the L Wrist (g/cm2): 0.704 T Score values are as follows: -----Dist. R+U: -0.0 -----Prox. R+U: -0.7 -----Radius total: 0.5 Z Score values are as follows: -----Dist. R+U: 1.9 -----Prox. R+U: 2.6 -----Radius total: 2.4 Baseline Left Forearm, scanned because patient had AAA surgery FRAX%s: The graph provided illustrates a 12.0% chance for a major osteoporotic fx and a 2.6% chance f or the hips probability for fx in 10 years time. IMPRESSION: Osteopenia (T Score between -2.5 and -1). There is slightly increased risk of fracture and the patient may be considered for treatment. Re-Screen 2-5 years. NOTE: T-SCORE=SD OF THE YOUNG ADULT MEAN.
--- NOTE | 2022-12-09 08:22 | MM ---
Reason for Exam: Screening (asymptomatic). Last mammogram was performed 2 year(s) and 9 month(s) ago. Patient History: Menarche at age 13. First Full-Term at age 23. Hysterectomy at age 46. Postmenopausal. Hormonal Contraceptives for 1 year from age 21 until age 25. Risk Values: Jil 5 year model risk: 1.6%. NCI Lifetime model risk: 4.3%. Prior Study Comparison: 08/07/2016 Bilateral Screening Mammogram, [facility]. 05/18/2018 Bilateral Screening Mammogram, [facility]. 03/02/2020 Bilateral Screening Mammogram, [facility]. Tissue Density: There are scattered fibroglandular densities. Findings: Analyzed By CAD. There is occasional scattered tiny benign-appearing round calcification bilaterally redemonstrated. Benign-appearing bilateral axillary lymph nodes are redemonstrated. There is no suspicious group of microcalcifications or new suspicious mass in either breast. Overall Assessment: Benign, BI-RAD 2 Management: Screening Mammogram of both breasts in 1 year. A clinical breast exam by your physician is recommended on an annual basis and results should be correlated with mammographic findings. Electronically signed and approved by: Jamie Romero M.D.
== END | disposition home or self-care (01) ==
LOC: RADMAMWWP 06:42
PROVIDERS: ATTEND Family Medicine
DX: Z12.31 Encounter for screening mammogram for malignant neoplasm of breast (principal); M85.89 Other specified disorders of bone density and structure, multiple sites; Z78.0 Asymptomatic menopausal state
CPT/HCPCS: 77063; 77067; 77080

== ENCOUNTER → 2023-04-11 | Outpatient (CLI) | payer MEDICARE ==
[2023-04-11 15:52] LABS: BUN/Creat Ratio 13.36 Ratio (12.00-20.00); Blood Urea Nitrogen 14.7 mg/dL (9.0-27.0); Chloride 108 mmol/L (96-109); Chol/HDL Ratio 2.19 Ratio; Glucose 101 mg/dL (70-110); LDL Cholesterol,Calculated 66.8 mg/dL (0.0-131.0); Potassium 5.2 mmol/L (3.5-5.5); Sodium 143 mmol/L (135-145)
[2023-04-11 15:53] LABS: ALT 11 U/L (8-44); AST 17 U/L (13-35); Albumin 4.3 d/dL (3.8-4.9); Albumin/Globulin Ratio 2.15 Ratio (1.60-3.17); Alkaline Phosphatase 58 U/L (41-126); Calcium 9.8 mg/dL (8.7-10.3); Carbon Dioxide 27.3 mmol/L (21.6-31.8); Total Bilirubin 0.5 mg/dL (0.3-1.2); Total Protein 6.3 d/dL (6.2-8.2)
== END | disposition home or self-care (01) ==
LOC: LABWHC1 08:13
PROVIDERS: ATTEND Internal Medicine Interventional Cardiology
DX: I10 Essential (primary) hypertension (principal); E78.2 Mixed hyperlipidemia
CPT/HCPCS: 36415; 80053; 80061

== ENCOUNTER → 2023-12-08 | Outpatient (CLI) | payer MEDICARE ==
--- NOTE | 2023-12-10 13:39 | MM ---
Reason for Exam: Screening (asymptomatic). Last screening mammogram was performed 12 month(s) ago. Patient History: Menarche at age 13. First Full-Term at age 23. Hysterectomy at age 46. Postmenopausal. Hormonal Contraceptives for 1 year from age 21 until age 25. Mother had breast cancer, age 87. Risk Values: Jil 5 year model risk: 3.4%. NCI Lifetime model risk: 8.6%. Prior Study Comparison: 05/18/2018 Bilateral Screening Mammogram, [facility]. 03/02/2020 Bilateral Screening Mammogram, [facility]. 12/06/2022 Bilateral MG 3D screening mammo w/cad, [facility]. Tissue Density: There are scattered areas of fibroglandular density. Findings: Analyzed By CAD. There is no suspicious group of microcalcifications or new suspicious mass in either breast. Overall Assessment: Benign, BI-RAD 2 Management: Screening Mammogram of both breasts in 1 year. . Patient should continue monthly self-breast exams. A clinical breast exam by your physician is recommended on an annual basis. This exam should not preclude additional follow-up of suspicious palpable abnormalities. Note on Jil scores and lifetime risk: 1. A Jil score greater than 3% is considered moderate risk. If this is the case, consider specialist referral to assess eligibility for a risk reducing agent. 2. If overall lifetime risk for the development of breast cancer is 20% or higher, the patient may qualify for future screening with alternating mammogram and breast MRI. Electronically signed and approved by: Doug Campbell M.D. Radiologis
== END | disposition home or self-care (01) ==
LOC: RADMAMWWP 06:52
PROVIDERS: ATTEND Family Medicine
DX: Z12.31 Encounter for screening mammogram for malignant neoplasm of breast (principal); Z80.3 Family history of malignant neoplasm of breast; Z78.0 Asymptomatic menopausal state
CPT/HCPCS: 77063; 77067

== ENCOUNTER 2024-06-12 11:41 | Emergency (ER) | payer MEDICARE ==
[2024-06-12 11:52] VITALS: RESP 18
--- NOTE | 2024-06-12 12:26 | ED ---
General Adult HPI - General Chief complaint: Altered Mental Status Stated complaint: AMS Time Seen by Provider: 06/12/24 11:53 Source: patient, family Mode of arrival: wheelchair Limitations: altered mental status - History of Present Illness Initial comments: Dictation was produced using [employer] dictation software. please excuse any grammatical, word or spelling errors. Chief Complaint: 73-year-old female presents to the emergency department for hallucinations and altered mental status History of Present Illness: Patient 73-year-old female she is accompanied by family. Since February she has been having hallucinations. Patient would have visual hallucinations and also auditory hallucinations. Patient also states she is confused. Denies any headache. No physical complaints. According to family primary care physician is not aware of patient's mentation The ROS documented in this emergency department record has been reviewed and confirmed by me. Those systems with pertinent positive or negative responses have been documented in the HPI. All other systems are other negative and/or noncontributory. - Related Data Home Medications Medication Instructions Recorded Confirmed amLODIPine BESYLATE/BENAZEPRIL 1 cap PO DAILY 08/08/20 06/12/24 [Lotrel 10-20 MG] Aspirin [Adult Low Dose Aspirin EC] 81 mg PO DAILY 03/27/21 06/12/24 Rosuvastatin [Crestor] 10 mg PO HS 03/27/21 06/12/24 Acetaminophen Tab [Tylenol Tab] 500 mg PO Q6HR PRN 06/12/24 06/12/24 Furosemide [Lasix] 20 mg PO DAILY PRN 06/12/24 06/12/24 Allergies Allergy/AdvReac Type Severity Reaction Status Date / Time bee venom protein (honey bee) Allergy Rash/Hives Verified 06/12/24 13:24 Review of Systems ROS Statement: Those systems with pertinent positive or pertinent negative responses have been documented in the HPI. ROS Other: All systems not noted in ROS Statement are negative. Past Medical History Past Medical History: Hyperlipidemia, Hypertension, Osteoarthritis (OA) Additional Past Medical History / Comment(s): GLAUCOMA. AORTA ANEURSYM. PERIPHERAL EDEMA. SHINGLES IN JULY 2020. History of Any Multi-Drug Resistant Organisms: None Reported Past Surgical History: Cholecystectomy, Hysterectomy Additional Past Surgical History / Comment(s): 03/2021 repair of abdominal aortic aneurysm, BILATERAL CATARACTS/LENS,(L) FEM-POP BYPASS w THROMBOENDARE CTOMY Past Anesthesia/Blood Transfusion Reactions: Motion Sickness Past Psychological History: Depression Smoking Status: Former smoker Past Alcohol Use History: Rare Past Drug Use History: None Reported - Past Family History Sister(s) Family Medical History: Cancer General Exam - General Exam Comments Initial Comments: PHYSICAL EXAM: General Impression: Alert and oriented x3, not in acute distress HEENT: Normocephalic atraumatic, extra-ocular movements intact, pupils equal and reactive to light bilaterally, mucous membranes moist. Cardiovascular: Heart regular rate and rhythm Chest: Able to complete full sentences, no retractions, no tachypnea Abdomen: abdomen soft, non-tender, non-distended, no organomegaly Musculoskeletal: Pulses present and equal in all extremities, no peripheral edema Motor: no focal deficits noted Neurological: CN II-XII grossly intact, no focal motor or sensory deficits noted Skin: Intact with no visualized rashes Psych: Normal affect and mood Limitations: altered mental status Course Vital Signs 06/12/24 11:47 Temperature 97.8 F Pulse Rate 62 Respiratory 18 Rate Blood Pressure 182/89 O2 Sat by Pulse 97 Oximetry EKG Findings - EKG Comments: EKG Findings:: My EKG interpretation: Ventricular rate 3, sinus rhythm,. 158, QRS 85, QTc 356. No [place] prolongation, no QTC prolongation, no ST or T-wave changes noted. Sinus arrhythmia Medical Decision Making - Medical Decision Making Was pt. sent in by a medical professional or institution (RONALDO Vitale, PRESS MAINTAINER, urgent care, hospital, or long-term...) When possible be specific @ -No Did you speak to anyone other than the patient for history (EMS, parent, family, police, friend...)? What history was obtained from this source @ -No Did you review nursing and triage notes (agree or disagree)? Why? @ -I reviewed and agree with nursing and triage notes Were old charts reviewed (outside hosp., previous admission, EMS record, old EKG, old radiological studies, urgent care reports/EKG's, long-term records)? Report findings @ -No old charts were reviewed Differential Diagnosis (chest pain, altered mental status, abdominal pain women, abdominal pain men, vaginal bleeding, musculoskeletal, weakness, fever, dyspnea, syncope, headache, dizziness, GI bleed, back pain, seizure, CVA, palpatations, mental health)? @ -Differential Altered Mental Status: Hypoglycemia, DKA, hypercapnia, ETOH, overdose, CO poisoning, trauma, myxedema coma, HTN encephalopathy, infection, encephalitis, psychosis, intercranial hemorrhage, hepatic encephalopathy, meningitis, CVA, this is not meant to be an all-inclusive list EKG interpreted by me (3pts min.). @ -See above X-rays interpreted by me (1pt min.). @ -None done CT interpreted by me (1pt min.). @ -CT scan of the brain is unremarkable U/S interpreted by me (1pt. min.). @ -None done What testing was considered but not performed or refused? (CT, X-rays, U/S, labs)? Why? @ -None What meds were considered but not given or refused? Why? @ -None Was smoking cessation discussed for >3mins.? @ -No Were there social determinants of health that impacted care today? How? (Homelessness, low income, unemployed, alcoholism, drug addiction, transportation, low edu. Level, literacy, decrease access to med. care, group home, rehab)? @ -No Was there de-escalation of care discussed even if they declined (Discuss DNR or withdrawal of care, Hospice)? DNR status @ -No What co-morbidities impacted this encounter? (DM, HTN, Smoking, COPD, CAD, Cancer, CVA, ARF, Chemo, Hep., AIDS, mental health diagnosis, sleep apnea, morbid obesity)? @ -None Was patient admitted / discharged? Hospital course, mention meds given and route, prescriptions, significant lab abnormalities, going to OR and other pertinent info. @ -73-year-old female presents to the ER department for altered mental status she has been having symptoms since summer of this year. Patient well-appearing vital signs stable. Physical examination is benign. Patient alert and oriented times 2 out of 4. No neurologic deficit. CT brain is negative. Labs are unremarkable. Patient discharged told to follow-up with primary care doctor. Family was notified that patient would benefit from outpatient evaluation with neurologist. Did you discuss the management of the patient with other professionals (professionals i.e. , PA, PRESS MAINTAINER, lab, RT, psych nurse, sr. social media & mobile manager, workers compensation specialist, teacher, forest fire officer, pillowcase cutter)? Give summary @ -No Was critical care preformed (if so, how long)? @ -No Undiagnosed new problem with uncertain prognosis? @ -No Drug Therapy requiring intensive monitoring for toxicity (Heparin, Nitro, Insulin, Cardizem)? @ -No Were any procedures done? @ -No Diagnosis/symptom? Acute, or Chronic, or Acute on Chronic? Uncomplicated (without systemic symptoms) or Complicated (systemic symptoms)? @ -Acute on chronic hallucinations Side effects of treatment? @ -No Exacerbation, Progression, or Severe Exacerbation? @ -No Poses a threat to life or bodily function? How? (Chest pain, USA, IA, pneumonia, PE, COPD, DKA, ARF, appy, cholecystitis, CVA, Diverticulitis, Homicidal, Suicidal, threat to staff... and all critical care pts) @ -yes - Lab Data Result diagrams: 06/12/24 12:30 06/12/24 12:30 Lab Results 06/12/24 06/12/24 06/12/24 Range/Units 12:30 12:30 16:30 WBC 7.9 (3.8-10.6) k/uL RBC 4.45 (3.80-5.40) m/uL Hgb 13.5 (11.4-16.0) gm/dL Hct 40.4 (34.0-46.0) % MCV 90.9 (80.0-100.0) fL MCH 30.3 (25.0-35.0) pg MCHC 33.4 (31.0-37.0) g/dL RDW 13.7 (11.5-15.5) % Plt Count 207 (150-450) k/uL MPV 8.8 Neutrophils % 64 % Lymphocytes % 25 % Monocytes % 5 % Eosinophils % 4 % Basophils % 1 % Neutrophils # 5.1 (1.3-7.7) k/uL Lymphocytes # 1.9 (1.0-4.8) k/uL Monocytes # 0.4 (0-1.0) k/uL Eosinophils # 0.3 (0-0.7) k/uL Basophils # 0.0 (0-0.2) k/uL Sodium 140 (137-145) mmol/L Potassium 4.2 (3.5-5.1) mmol/L Chloride 112 H (98-107) mmol/L Carbon Dioxide 25 (22-30) mmol/L Anion Gap 3 mmol/L BUN 17 (7-17) mg/dL Creatinine 0.82 (0.52-1.04) mg/dL Est GFR (CKD-EPI)AfAm 83 (>60 ml/min/1.73 sqM) Est GFR (CKD-EPI)NonAf 72 (>60 ml/min/1.73 sqM) Glucose 95 (74-99) mg/dL Calcium 9.1 (8.4-10.2) mg/dL Urine Color Yellow Urine Appearance Clear (Clear) Urine pH 5.0 (5.0-8.0) Ur Specific [place] 1.019 (1.001-1.035) Urine Protein Negative (Negative) Urine Glucose (UA) Negative (Negative) Urine Ketones Negative (Negative) Urine Blood Moderate H (Negative) Urine Nitrite Negative (Negative) Urine Bilirubin Negative (Negative) Urine Urobilinogen <2.0 (<2.0) mg/dL Ur Leukocyte Esterase Negative (Negative) Urine RBC 3 (0-5) /hpf Urine WBC 5 (0-5) /hpf Ur Squamous Epith Cells <1 (0-4) /hpf Urine Mucus Moderate H (None) /hpf Disposition Clinical Impression: AMS (altered mental status) Disposition: HOME SELF-CARE Condition: Good Instructions (If sedation given, give patient instructions): Altered Mental Status (ED) Is patient prescribed a controlled substance at d/c from ED?: No Referrals: James Li MD [Primary Care Provider] - 1-2 days Time of Disposition: 16:45
[2024-06-12 12:39] LABS: Basophils % (A) 1 %; Eosinophils # (A) 0.3 k/uL (0-0.7); Eosinophils % (A) 4 %; HCT 40.4 % (34.0-46.0); HGB 13.5 gm/dL (11.4-16.0); Lymphocytes # (A) 1.9 k/uL (1.0-4.8); Lymphocytes % (A) 25 %; MCH 30.3 pg (25.0-35.0); MCHC 33.4 g/dL (31.0-37.0); MCV 90.9 fL (80.0-100.0); Mean Platelet Volume 8.8; Monocytes # (A) 0.4 k/uL (0-1.0); Monocytes % (A) 5 %; Neutrophils # (A) 5.1 k/uL (1.3-7.7); Neutrophils % (A) 64 %; Platelet Count 207 k/uL (150-450); RBC 4.45 m/uL (3.80-5.40); RDW 13.7 % (11.5-15.5); WBC 7.9 k/uL (3.8-10.6)
[2024-06-12 12:50] LABS: African American GFR (CKD) 83 (>60 ml/min/1.73 sqM); Anion Gap 3 mmol/L; Blood Urea Nitrogen 17 mg/dL (7-17); Calcium 9.1 mg/dL (8.4-10.2); Carbon Dioxide 25 mmol/L (22-30); Chloride 112 mmol/L (98-107); Glucose 95 mg/dL (74-99); Non-African American GFR(CKD) 72 (>60 ml/min/1.73 sqM); Potassium 4.2 mmol/L (3.5-5.1); Sodium 140 mmol/L (137-145)
--- NOTE | 2024-06-12 13:23 | CT ---
EXAMINATION TYPE: CT brain wo con CT DLP: 1188.4 mGycm, Automated exposure control for dose reduction was used. DATE OF EXAM: 06/12/2024 12:50 PM COMPARISON: None. CLINICAL INDICATION: Female, 73 years old with history of ams, AMS TECHNIQUE: Brain: Axial CT images of the brain were obtained with coronal and sagittal reformats created and rev iewed. Contrast used: None. Oral contrast used: None. FINDINGS: Brain: Extra-axial spaces: No abnormal extra-axial fluid collections. Ventricular system: Within normal limits Cerebral parenchyma: No acute intraparenchymal hemorrhage or mass effect. The bhatia-white junction is well differentiated. Cerebellum: Unremarkable. Mass effect: No evidence of midline shift. Intracranial vasculature: unremarkable Soft tissues: Normal. Calvarium/osseous structures: No depressed skull fracture. Paranasal sinuses and mastoid air cells: Mild scattered paranasal sinus disease. Visualized orbits: Orbital contents are intact. IMPRESSION: No acute intracranial process. [facility], , 06/12/2024 1:20 PM
[2024-06-12 16:45] LABS: Appearance,Urine Clear (Clear); Bilirubin,Urine Negative (Negative); Blood,Urine Moderate (Negative); Color,Urine Yellow; Glucose,Urine (UA) Negative (Negative); Ketones,Urine Negative (Negative); Leukocyte Esterase,Urine Negative (Negative); Mucus,Urine Moderate /hpf; Nitrite,Urine Negative (Negative); Protein,Urine Negative (Negative); RBC,Urine 3 /hpf (0-5); Specific Gravity,Urine 1.019 (1.001-1.035); Squamous Epithelial Cell,Urine <1 /hpf (0-4); Urobilinogen,Urine <2.0 mg/dL (<2.0); WBC,Urine 5 /hpf (0-5)
[2024-06-12 17:12] VITALS: BP 149/80; PULSE 54; TEMP 98.2
== END 2024-06-12 17:12 | disposition home or self-care (01) ==
LOC: EC 11:41
CPT/HCPCS: 36415; 70450; 80048; 81001; 85025; 93005; 99285

== ENCOUNTER 2025-02-02 13:46 | Observation (INO) | payer MEDICARE ==
[2025-02-02 14:08] LABS: Basophils # (A) 0.04 10*3/uL (0.00-0.10); Basophils % (A) 0.4 %; Eosinophils # (A) 0.09 10*3/uL (0.04-0.35); HCT 36.8 % (37.2-46.3); HGB 12.1 g/dL (12.0-15.0); Lymphocytes # (A) 1.68 10*3/uL (0.90-5.00); Lymphocytes % (A) 18.8 %; MCHC 32.9 g/dL (32.0-37.0); MCV 91.1 fL (80.0-97.0); Mean Platelet Volume 10.8 fL (9.5-12.2); Monocytes # (A) 0.78 10*3/uL (0.20-1.00); Monocytes % (A) 8.7 %; Neutrophils # (A) 6.32 10*3/uL (1.80-7.70); Neutrophils % (A) 70.9 %; Platelet Count 188 10*3/uL (140-440); RBC 4.04 10*6/uL (4.10-5.20); RDW 13.3 % (11.5-14.5); WBC 8.93 10*3/uL (4.50-10.00)
[2025-02-02] MEDS: SODIUM CHLORIDE 0.9% 500 ML 500 ML IV ONE (14:14)
[2025-02-02 14:17] LABS: Glucose,Whole Blood 105 mg/dL (70-110)
[2025-02-02 14:20] LABS: Partial Thromboplastin Time 23.7 sec (22.0-30.0); Prothrombin Time 11.4 sec (10.0-12.5)
[2025-02-02 14:28] LABS: African American GFR (CKD) 89 (>60 ml/min/1.73 sqM); Anion Gap 9 mmol/L; Blood Urea Nitrogen 24 mg/dL (7-17); Carbon Dioxide 25 mmol/L (22-30); Chloride 105 mmol/L (98-107); Glucose 107 mg/dL (74-99); Potassium 3.3 mmol/L (3.5-5.1); Sodium 139 mmol/L (137-145)
[2025-02-02 14:29] LABS: ALT 14 U/L (4-34); AST 26 U/L (14-36); Albumin 3.6 g/dL (3.5-5.0); Alkaline Phosphatase 48 U/L (38-126); Calcium 9.7 mg/dL (8.4-10.2); Non-African American GFR(CKD) 77 (>60 ml/min/1.73 sqM); Total Bilirubin 0.7 mg/dL (0.2-1.3); Total Protein 5.7 g/dL (6.3-8.2)
--- NOTE | 2025-02-02 14:31 | ED ---
Altered Mental Status HPI <Homero Fermin - Last Filed: 02/02/25 17:37> - General Source: patient, EMS Mode of arrival: EMS Limitations: no limitations <Savannah Gregory - Last Filed: 02/03/25 07:36> - General Chief Complaint: Altered Mental Status Stated Complaint: AMS Time Seen by Provider: 02/02/25 13:55 - History of Present Illness Initial Comments: 74-year-old female with past medical history of hyperlipidemia, hypertension, dementia who presents to the emergency department with increasing weakness and altered mental status. Family called EMS today because the patient seemed to be more weak. She does have a history of dementia and family is unsure if it is this condition causing her symptoms or if it is something else. They deny that she has had any fevers. No falls. Patient has no complaints. No other alleviating, precipitating or modifying factors (Savannah Gregory) - Related Data Home Medications Medication Instructions Recorded Confirmed amLODIPine BESYLATE/BENAZEPRIL 1 cap PO DAILY 08/08/20 02/02/25 [Lotrel 10-20 MG] Aspirin [Adult Low Dose Aspirin EC] 81 mg PO DAILY 03/27/21 02/02/25 Rosuvastatin [Crestor] 10 mg PO DAILY 03/27/21 02/02/25 prednisoLONE ACETATE 1% OPHTH 1 drop RIGHT EYE TID 02/02/25 02/02/25 [Pred Forte 1%] risperiDONE [RisperDAL] 0.5 mg PO DAILY@1200 02/02/25 02/02/25 risperiDONE [RisperDAL] 1 mg PO HS 02/02/25 02/02/25 Allergies Allergy/AdvReac Type Severity Reaction Status Date / Time bee venom protein (honey bee) Allergy Rash/Hives Verified 02/02/25 16:44 Review of Systems ROS Other: All systems not noted in ROS Statement are negative. <Homreo Fermin - Last Filed: 02/02/25 17:37> ROS Other: All systems not noted in ROS Statement are negative. <Savannah Gregory - Last Filed: 02/03/25 07:36> ROS Statement: Those systems with pertinent positive or pertinent negative responses have been documented in the HPI. Past Medical History Past Medical History: Hyperlipidemia, Hypertension, Osteoarthritis (OA) Additional Past Medical History / Comment(s): GLAUCOMA. AORTA ANEURSYM. PERIPHERAL EDEMA. SHINGLES IN JULY 2020. History of Any Multi-Drug Resistant Organisms: None Reported Past Surgical History: Cholecystectomy, Hysterectomy Additional Past Surgical History / Comment(s): 03/2021 repair of abdominal aortic aneurysm, BILATERAL CATARACTS/LENS,(L) FEM-POP BYPASS w THROMBOENDARECTOMY Past Anesthesia/Blood Transfusion Reactions: Motion Sickness Past Psychological History: Depression Smoking Status: Former smoker Past Alcohol Use History: Rare Past Drug Use History: None Reported - Past Family History Sister(s) Family Medical History: Cancer <Savannah Gregory - Last Filed: 02/03/25 07:36> General Exam Limitations: no limitations General appearance: alert, in no apparent distress Head exam: Present: atraumatic, normocephalic, normal inspection Eye exam: Present: PERRL, EOMI, conjunctival injection (Right eye). Absent: scleral icterus, periorbital swelling ENT exam: Present: normal exam, mucous membranes moist Neck exam: Present: normal inspection. Absent: tenderness, meningismus, lymphadenopathy Respiratory exam: Present: normal lung sounds bilaterally. Absent: respiratory distress, wheezes, rales, rhonchi, stridor Cardiovascular Exam: Present: normal rhythm, bradycardia, normal heart sounds. Absent: systolic murmur, diastolic murmur, rubs, gallop, clicks GI/Abdominal exam: Present: soft, normal bowel sounds. Absent: distended, tenderness, guarding, rebound, rigid Extremities exam: Present: normal inspection, full ROM, normal capillary refill. Absent: tenderness, pedal edema, joint swelling, calf tenderness Back exam: Present: normal inspection Neurological exam: Present: alert, CN II-XII intact Psychiatric exam: Present: normal affect, normal mood Skin exam: Present: warm, dry, intact, normal color. Absent: rash <Savannah Gregory - Last Filed: 02/03/25 07:36> Course Vital Signs 02/02/25 02/02/25 02/02/25 13:55 15:25 17:00 Temperature 98 F Pulse Rate 58 L 59 L 60 Respiratory 18 18 18 Rate Blood Pressure 120/62 177/82 184/81 O2 Sat by Pulse 98 98 95 Oximetry 02/02/25 02/02/25 18:00 20:00 Temperature 98.4 F Pulse Rate 57 L 70 Respiratory 18 18 Rate Blood Pressure 165/74 167/70 O2 Sat by Pulse 97 96 Oximetry Medical Decision Making - Lab Data Result diagrams: 02/02/25 14:00 02/02/25 14:00 <ZanderHomero Caicedo - Last Filed: 02/02/25 17:37> - Lab Data Result diagrams: 02/02/25 14:00 02/02/25 14:00 <ColtSavannah Rock - Last Filed: 02/03/25 07:36> - Medical Decision Making Patient care signed out pending reevaluation and urinalysis. Urinalysis is unremarkable. Patient reevaluated family has concerns about the ability of this patient to stay at home due to the increased needs of care. Patient will be admitted for evaluation of increased confusion, dehydration, and need for possible placement. Case discussed with Dr. Fuentes who will admit (Homero Fermin) Was pt. sent in by a medical professional or institution (, PA, TRANSPORTATION SOLUTIONS MANAGER, urgent care, hospital, or senior living...) When possible be specific @ -No Did you speak to anyone other than the patient for history (EMS, parent, family, police, friend...)? What history was obtained from this source @ -I spoke with EMS for history Did you review nursing and triage notes (agree or disagree)? Why? @ -I reviewed and agree with nursing and triage notes Were old charts reviewed (outside hosp., previous admission, EMS record, old EK G, old radiological studies, urgent care reports/EKG's, senior living records)? Report findings @ -No old charts were reviewed Differential Diagnosis (chest pain, altered mental status, abdominal pain women, abdominal pain men, vaginal bleeding, weakness, fever, dyspnea, syncope, headache, dizziness, GI bleed, back pain, seizure, CVA, palpatations, mental health, musculoskeletal)? @ -Differential Weakness: Hypoglycemia, shock, sepsis, hyponatremia, anemia, infection, OH, ETOH, adverse medicine reaction, overdose, stroke, this is not meant to be an all-inclusive list. EKG interpreted by me (3pts min.). @ -Yes and demonstrates sinus rhythm with a rate of 64. AL interval 149. QRS 92. QTc of 440. No acute ST segment elevations or depressions X-rays interpreted by me (1pt min.). @ -Yes which demonstrates no acute process CT interpreted by me (1pt min.). @ -Yes which demonstrates no acute process U/S interpreted by me (1pt. min.). @ -None done What testing was considered but not performed or refused? (CT, X-rays, U/S, labs)? Why? @ -None What meds were considered but not given or refused? Why? @ -None Did you discuss the management of the patient with other professionals (pr ofessionals i.e. , PA, TRANSPORTATION SOLUTIONS MANAGER, lab, RT, psych nurse, group social worker, maintenance custodian, teacher, armed security officer, counter caser)? Give summary @ -Spoke with Dr. Fermin who will follow-up on the urine sample Was smoking cessation discussed for >3mins.? @ -No Was critical care preformed (if so, how long)? @ -No Were there social determinants of health that impacted care today? How? (Homelessness, low income, unemployed, alcoholism, drug addiction, transportation, low edu. Level, literacy, decrease access to med. care, alf, rehab)? @ -No Was there de-escalation of care discussed even if they declined (Discuss DNR or withdrawal of care, Hospice)? DNR status @ -No What co-morbidities impacted this encounter? (DM, HTN, Smoking, COPD, CAD, Cancer, CVA, ARF, Chemo, Hep., AIDS, mental health diagnosis, sleep apnea, morbid obesity)? @ -Dementia, hypertension Was patient admitted / discharged? Hospital course, mention meds given and route, prescriptions, significant lab abnormalities, going to OR and other pertinent info. @ -Upon arrival patient seen and evaluated in room 6. Thorough history and p hysical exam was performed. Patient placed on continuous pulse ox and cardiac monitoring. Twelve-lead EKG is obtained. Laboratory studies are conducted. Patient does go for CT. Awaiting urine sample at this time. Patient will be signed out to Dr. Fermin Undiagnosed new problem with uncertain prognosis? @ -No Drug Therapy requiring intensive monitoring for toxicity (Heparin, Nitro, Insuli n, Cardizem)? @ -No Were any procedures done? @ -No Diagnosis/symptom? @ -Acute encephalopathy, history of dementia Acute, or Chronic, or Acute on Chronic? @ -Acute on chronic Uncomplicated (without systemic symptoms) or Complicated (systemic symptoms)? @ -Complicated Side effects of treatment? @ -No Exacerbation, Progression, or Severe Exacerbation? @ -No Poses a threat to life or bodily function? How? (Chest pain, USA, OH, pneumonia, PE, COPD, DKA, ARF, appy, cholecystitis, CVA, Diverticulitis, Homicidal, Suicidal, threat to staff... and all critical care pts) @ -No (Savannah Gregory) - Lab Data Lab Results 02/02/25 02/02/25 02/02/25 Range/Units 14:00 14:00 14:00 WBC 8.93 (4.50-10.00) 10*3/uL RBC 4.04 L (4.10-5.20) 10*6/uL Hgb 12.1 (12.0-15.0) g/dL Hct 36.8 L (37.2-46.3) % MCV 91.1 (80.0-97.0) fL MCH 30.0 (27.0-32.0) pg MCHC 32.9 (32.0-37.0) g/dL Plt Count 188 (140-440) 10*3/uL MPV 10.8 (9.5-12.2) fL Immature Gran % (Auto) 0.2 % Neutrophils % 70.9 % Lymphocytes % 18.8 % Monocytes % 8.7 % Eosinophils % 1.0 % Basophils % 0.4 % Immature Gran # 0.02 (0.00-0.04) 10*3/uL Neutrophils # 6.32 (1.80-7.70) 10*3/uL Lymphocytes # 1.68 (0.90-5.00) 10*3/uL Monocytes # 0.78 (0.20-1.00) 10*3/uL Eosinophils # 0.09 (0.04-0.35) 10*3/uL Basophils # 0.04 (0.00-0.10) 10*3/uL PT 11.4 (10.0-12.5) sec INR 1.0 (<1.2) APTT 23.7 (22.0-30.0) sec Sodium 139 (137-145) mmol/L Potassium 3.3 L (3.5-5.1) mmol/L Chloride 105 (98-107) mmol/L Carbon Dioxide 25 (22-30) mmol/L Anion Gap 9 mmol/L BUN 24 H (7-17) mg/dL Creatinine 0.77 (0.52-1.04) mg/dL Est GFR (CKD-EPI)AfAm 89 (>60 ml/min/1.73 sqM) Est GFR (CKD-EPI)NonAf 77 (>60 ml/min/1.73 sqM) Glucose 107 H (74-99) mg/dL POC Glucose (mg/dL) (70-110) mg/dL POC Glu [employer] Repairer ID Calcium 9.7 (8.4-10.2) mg/dL Total Bilirubin 0.7 (0.2-1.3) mg/dL AST 26 (14-36) U/L ALT 14 (4-34) U/L Alkaline Phosphatase 48 (38-126) U/L Ammonia (<30) umol/L Troponin I (0.000-0.034) ng/mL Total Protein 5.7 L (6.3-8.2) g/dL Albumin 3.6 (3.5-5.0) g/dL Urine Color Urine Appearance (Clear) Urine pH (5.0-8.0) Ur Specific [place] (1.001-1.035) Urine Protein (Negative) Urine Glucose (UA) (Negative) Urine Ketones (Negative) Urine Blood (Negative) Urine Nitrite (Negative) Urine Bilirubin (Negative) Urine Urobilinogen (<2.0) mg/dL Ur Leukocyte Esterase (Negative) 02/02/25 02/02/25 02/02/25 Range/Units 14:00 14:00 14:16 WBC (4.50-10.00) 10*3/uL RBC (4.10-5.20) 10*6/uL Hgb (12.0-15.0) g/dL Hct (37.2-46.3) % MCV (80.0-97.0) fL MCH (27.0-32.0) pg MCHC (32.0-37.0) g/dL Plt Count (140-440) 10*3/uL MPV (9.5-12.2) fL Immature Gran % (Auto) % Neutrophils % % Lymphocytes % % Monocytes % % Eosinophils % % Basophils % % Immature Gran # (0.00-0.04) 10*3/uL Neutrophils # (1.80-7.70) 10*3/uL Lymphocytes # (0.90-5.00) 10*3/uL Monocytes # (0.20-1.00) 10*3/uL Eosinophils # (0.04-0.35) 10*3/uL Basophils # (0.00-0.10) 10*3/uL PT (10.0-12.5) sec INR (<1.2) APTT (22.0-30.0) sec Sodium (137-145) mmol/L Potassium (3.5-5.1) mmol/L Chloride (98-107) mmol/L Carbon Dioxide (22-30) mmol/L Anion Gap mmol/L BUN (7-17) mg/dL Creatinine (0.52-1.04) mg/dL Est GFR (CKD-EPI)AfAm (>60 ml/min/1.73 sqM) Est GFR (CKD-EPI)NonAf (>60 ml/min/1.73 sqM) Glucose (74-99) mg/dL POC Glucose (mg/dL) 105 (70-110) mg/dL POC Glu [employer] Train Repairer ID Sergey Alexia Calcium (8.4-10.2) mg/dL Total Bilirubin (0.2-1.3) mg/dL AST (14-36) U/L ALT (4-34) U/L Alkaline Phosphatase (38-126) U/L Ammonia <9 (<30) umol/L Troponin I <0.012 (0.000-0.034) ng/mL Total Protein (6.3-8.2) g/dL Albumin (3.5-5.0) g/dL Urine Color Urine Appearance (Clear) Urine pH (5.0-8.0) Ur Specific [place] (1.001-1.035) Urine Protein (Negative) Urine Glucose (UA) (Negative) Urine Ketones (Negative) Urine Blood (Negative) Urine Nitrite (Negative) Urine Bilirubin (Negative) Urine Urobilinogen (<2.0) mg/dL Ur Leukocyte Esterase (Negative) 02/02/25 Range/Units 16:13 WBC (4.50-10.00) 10*3/uL RBC (4.10-5.20) 10*6/uL Hgb (12.0-15.0) g/dL Hct (37.2-46.3) % MCV (80.0-97.0) fL MCH (27.0-32.0) pg MCHC (32.0-37.0) g/dL Plt Count (140-440) 10*3/uL MPV (9.5-12.2) fL Immature Gran % (Auto) % Neutrophils % % Lymphocytes % % Monocytes % % Eosinophils % % Basophils % % Immature Gran # (0.00-0.04) 10*3/uL Neutrophils # (1.80-7.70) 10*3/uL Lymphocytes # (0.90-5.00) 10*3/uL Monocytes # (0.20-1.00) 10*3/uL Eosinophils # (0.04-0.35) 10*3/uL Basophils # (0.00-0.10) 10*3/uL PT (10.0-12.5) sec INR (<1.2) APTT (22.0-30.0) sec Sodium (137-145) mmol/L Potassium (3.5-5.1) mmol/L Chloride (98-107) mmol/L Carbon Dioxide (22-30) mmol/L Anion Gap mmol/L BUN (7-17) mg/dL Creatinine (0.52-1.04) mg/dL Est GFR (CKD-EPI)AfAm (>60 ml/min/1.73 sqM) Est GFR (CKD-EPI)NonAf (>60 ml/min/1.73 sqM) Glucose (74-99) mg/dL POC Glucose (mg/dL) (70-110) mg/dL POC Glu [employer] Train Repairer ID Calcium (8.4-10.2) mg/dL Total Bilirubin (0.2-1.3) mg/dL AST (14-36) U/L ALT (4-34) U/L Alkaline Phosphatase (38-126) U/L Ammonia (<30) umol/L Troponin I (0.000-0.034) ng/mL Total Protein (6.3-8.2) g/dL Albumin (3.5-5.0) g/dL Urine Color Light Yellow Urine Appearance Clear (Clear) Urine pH 5.5 (5.0-8.0) Ur Specific [place] 1.022 (1.001-1.035) Urine Protein Negative (Negative) Urine Glucose (UA) Negative (Negative) Urine Ketones Negative (Negative) Urine Blood Negative (Negative) Urine Nitrite Negative (Negative) Urine Bilirubin Negative (Negative) Urine Urobilinogen <2.0 (<2.0) mg/dL Ur Leukocyte Esterase Negative (Negative) Disposition Is patient prescribed a controlled substance at d/c from ED?: No Time of Disposition: 17:38 <Homero Fermin - Last Filed: 02/02/25 17:37> <Savannah Gregory - Last Filed: 02/03/25 07:36> Clinical Impression: Altered mental status Disposition: ADMITTED IP TO THIS HOSP Condition: Stable
--- NOTE | 2025-02-02 15:21 | CT ---
EXAMINATION TYPE: CT brain wo con DATE OF EXAM: 02/02/2025 COMPARISON: 06/12/2024 CLINICAL INDICATION: Female, 74 years old with history of Altered mental status; PHH, AMS. CT DLP: 1199.4 mGycm Automated exposure control for dose reduction was used. Findings: The ventricles, basal cisterns and sulci over convexities are mildly enlarged consistent with moderat e mild atrophy, appropriate for the patient's age. There is mild decreased density in the periventricular white matter consistent with mild chronic isch emic white matter demyelination. There is no mass effect or shift of midline structures. There is no acute intra or extra-axial hemorrhage. The posterior fossa including the brainstem, fourth ventricle and cerebellopontine angles appear rachell sly normal. The intraorbital contents appear normal symmetric Visualized paranasal sinuses and mastoid air cells are well aerated. Calvarium is intact. IMPRESSION: 1. Mild Age appropriate senescent changes as described above. 2. No significant interval change. 3. No acute bleed or mass effect. [facility], , 02/02/2025 3:19 PM
--- NOTE | 2025-02-02 15:25 | XR ---
EXAMINATION TYPE: XR chest 2V DATE OF EXAM: 02/02/2025 2:51 PM COMPARISON: Chest radiographs from 11/28/2009. CLINICAL INDICATION: Female, 74 years old with history of altered mental status; [facility] TECHNIQUE: XR chest 2V Frontal and lateral views of the chest. FINDINGS: Lungs/Pleura: There is no evidence of pleural effusion, focal consolidation, or pneumothorax. Pulmonary vascularity: Pulmonary vascular congestion. Heart/mediastinum: Cardiomediastinal silhouette is unremarkable. Musculoskeletal: No acute osseous pathology. Other findings: None IMPRESSION: Correlate for mild pulmonary edema. [facility], , 02/02/2025 3:23 PM
[2025-02-02] MEDS: LORazepam 1 MG/0.5 ML VIAL IV STA (16:23)
[2025-02-02 16:24] LABS: Appearance,Urine Clear (Clear); Bilirubin,Urine Negative (Negative); Blood,Urine Negative (Negative); Color,Urine Light Yellow; Glucose,Urine (UA) Negative (Negative); Ketones,Urine Negative (Negative); Leukocyte Esterase,Urine Negative (Negative); Nitrite,Urine Negative (Negative); PH, Urine 5.5 (5.0-8.0); Protein,Urine Negative (Negative); Specific Gravity,Urine 1.022 (1.001-1.035); Urobilinogen,Urine <2.0 mg/dL (<2.0)
[2025-02-02] MEDS ORDERED: NALOXONE 0.4 MG/ML 1 ML VIAL IV PRN (17:35)
[2025-02-02] MEDS: SODIUM CHLORIDE 0.9% 1,000 ML IV SCH (18:01)
[2025-02-02] MEDS ORDERED: hydrALAZINE HCL 20 MG/ML 1 ML VIAL IVP PRN (21:31)
[2025-02-02] MEDS: QUEtiapine 25 MG TAB PO STA (22:12)
[2025-02-02] MEDS: prednisoLONE ACETATE 1% OPHTH DROPS 5 ML BTL RIGHT EYE SCH (22:13)
[2025-02-02] MEDS: risperiDONE 1 MG TAB PO SCH (23:40)
[2025-02-03] MEDS ORDERED: Potassium Replacement Protocol 1 EACH MISC MISCELLANE PRN (01:58)
[2025-02-03] MEDS: POTASSIUM CHLORIDE ER 20 MEQ TAB.ER PO SCH ×2 (02:13→18:52)
[2025-02-03 08:33] LABS: BUN/Creat Ratio 20.71 Ratio (12.00-20.00); Blood Urea Nitrogen 14.5 mg/dL (9.0-27.0); Calcium 9.2 mg/dL (8.7-10.3); Carbon Dioxide 22.9 mmol/L (21.6-31.8); Chloride 105 mmol/L (96-109); Glucose 109 mg/dL (70-110); Potassium 3.4 mmol/L (3.5-5.5); Sodium 141 mmol/L (135-145)
[2025-02-03] MEDS: risperiDONE 0.5 MG TAB PO SCH (13:52)
[2025-02-03] MEDS: amLODIPine 10 MG TAB PO SCH (13:52)
[2025-02-03] MEDS: ATORVASTATIN 20 MG TAB PO SCH (13:52)
[2025-02-03] MEDS: ASPIRIN 81 MG PO SCH (13:52)
[2025-02-03] MEDS: lisinopriL 20 MG TAB PO SCH (13:52)
[2025-02-03] MEDS: ACETAMINOPHEN TAB 325 MG TAB PO PRN (16:09)
--- NOTE | 2025-02-03 17:58 | P.HPIM ---
History of Present Illness H&P Date: 02/03/25 Chief Complaint: Metabolic encephalopathy HISTORY OF PRESENT ILLNESS: This is a 74-year-old female with a previous medical history significant for hypertension and hypertensive cardiovascular disease, hyperlipidemia, history of Alzheimer dementia, has been under the care of neurology at the [facility], history of abdominal aortic aneurysm status post endovascular graft in 2019, history of tobacco use and dependence quit about 5 years ago, patient presented to the emergency department at [facility] yesterday because her family were not able to reason with her, she was quite obtunded not able to get up on her own, she was quite confused, she ended up coming to the ER at [facility], she had a CT scan of the brain did show evidence of brain atrophy without evidence of acute infarct or bleed, she had a chest x-ray did not show evidence of acute abnormalities, urinalysis was good, but because of that she was admitted to the hospital she was quite combative in the ER she was given Ativan in the emergency department, and she was admitted to the floor, patient was given 1 dose of Seroquel 25 mg at bedtime last night, she has been sleepy ever since, she did receive Risperdal 1 mg last night as well, and she was supposed to receive another Risperdal 0.5 mg at noon today but that was placed on hold for now, patient will be seen in consultation by neurology this is likely related to the effect of medication and worsening dementia social media specialist consultation and physical therapy evaluation, I spoke with the family including her daughter and her at the bedside, they were in agreement for the patient to be transferred to subacute rehabilitation, she will need chronic care at this point in time, I had the conversation with carolyn palafox/palliative care at this point in time, but this point we will hold off on this continue with current medical care. REVIEW OF SYSTEMS: Constitutional: No documented fever, no chills, no night sweats. No weight change. No weakness, positive for fatigue and lethargy. positive for daytime sleepiness. EENT: No headache. No blurred vision or double vision, no loss of vision. No loss of Hearing, no ringing in the ears, no dizziness. No nasal drainage or congestion. No epistaxis. No sore throat. Lungs: No shortness of breath, no cough, no sputum production. No wheezing. Reports dyspnea with activity. Cardiovascular: No chest pain, no lower extremity edema. No palpitations. No paroxysmal nocturnal dyspnea. No orthopnea. No lightheadedness or dizziness. No syncopal episodes. Abdominal: Reports no abdominal pain. No nausea, vomiting. No diarrhea. No constipation. No bloody or tarry stools reports loss of appetite. Genitourinary: No dysuria, increased frequency, urgency. No urinary retention. Musculoskeletal: No myalgias. No muscle weakness, positive for gait dys function, no frequent falls. No back pain. No neck pain. Integumentary: No wounds, no lesions. No rash or pruritus. No unusual bruising. No change in hair or nails. Neurologic: No aphasia. No facial droop. positive for change in mentation. No head injury. No headache. No paralysis. No paresthesia. Psychiatric: No depression. No anxiety. No mood swings. Endocrine: No abnormal blood sugars. No weight change. PAST MEDICAL HISTORY: Hypertension and hypertensive cardiovascular disease Mixed hyperlipidemia. Alzheimer dementia. Abdominal aortic aneurysm status post endovascular graft. Glaucoma. Osteoarthritis. PAST SURGICAL HISTORY: Abdominal aortic aneurysm status post endovascular graft 2020 Appendectomy. Cholecystectomy. Right eye stent for glaucoma. SOCIAL HISTORY: Patient smoked about a pack every day since the age of 19 she quit in 2024, she denies any alcohol ingestion, no drug use or abuse, she lives with her . FAMILY HISTORY: Mother at the age of 88 from breast cancer, father at the age of 80 from myocardial infarction, patient has no brothers, she had 2 sisters 1 at the age of 69 from lung cancer with diabetes mellitus type 2 the other 1 is alive 70-year-old with history of CAD, patient has 2 daughters and 1 son no major medical problems. PHYSICAL EXAMINATION: General: This is a 74-year-old female who is laying down in bed appears to be obtunded sleeping not following much commands. HEENT: Head is atraumatic, normocephalic, pupils were equal round reactive to light and recommendation, extraocular muscle movement were intact, sclera nonicteric, conjunctivae were pale, mucous membranes of the mouth are somewhat dry. Neck: Supple, no JVP, normal carotid upstroke bilaterally, no lymphadenopathy. Chest: Decreased breath sounds at the bases, few rhonchi, no expiratory wheezes, no chest wall tenderness, no intercostal retractions. Heart: First heart sound is normal, second heart sounds normal there is systolic ejection murmur 2/6 located in the left sternal border. Abdomen: Soft, nontender, nondistended, positive bowel sounds. Extremities: There is no edema no calf tenderness DP +2 bilaterally. Neurologic examination: Patient is stuporous opens her eyes and responds very soon as she goes back to sleep, she is moving all her extremities. ASSESSMENT AND PLAN: 1. Metabolic encephalopathy likely related to worsening Alzheimer dementia along with medication side effects including combination of Seroquel and R isperdal. Discontinue Risperdal at this time, patient is not going to take her Risperdal this afternoon, continue IV fluid resuscitation, continue with monitoring, we will continue to follow-up with the patient very closely, neurology consultation with Dr. Garnica. Patient did have a CT scan yesterday that was negative for acute infarct or bleed. 2. History of Alzheimer dementia with behavioral disturbances. Currently on Risperdal 1 mg at bedtime and 0.5 mg during the day. Has been following with a neurologist at the [facility]. 3. Hypertension and hypertensive cardiovascular disease. Continue patient on amlodipine 10 mg once every day, lisinopril 20 mg orally once every day, start the patient on hydralazine 10 mg IV push every 4 hours as needed for systolic blood pressure greater than 160 monitor the patient blood pressure very closely. 4. Mixed hyperlipidemia. Continue patient on atorvastatin 20 mg orally once every day, monitor lipid panel, 5. History of abdominal aortic aneurysm status post endovascular stent graft. Stable at this time. Continue aspirin 81 mg once every day, continue with atorvastatin 20 mg once every day. 6. Chronic tobacco use and dependence with possible underlying COPD. Stable at this time. 7. DVT prophylaxis. Lovenox 40 mg subcutaneous every 24 hours, bilateral knee- high CORINNE hose. 8. GI prophylaxis. Continue patient on Protonix 40 mg once every day. 9. Hypokalemia status post replacement. 10. Admit to inpatient. Estimated length of stay 2 midnights. 11. Patient is no code Past Medical History Past Medical History: Hyperlipidemia, Hypertension, Osteoarthritis (OA) Additional Past Medical History / Comment(s): GLAUCOMA. AORTA ANEURSYM. PERIPHERAL EDEMA. SHINGLES IN JULY 2020. History of Any Multi-Drug Resistant Organisms: None Reported Past Surgical History: Cholecystectomy, Hysterectomy Additional Past Surgical History / Comment(s): 03/2021 repair of abdominal aortic aneurysm, BILATERAL CATARACTS/LENS,(L) FEM-POP BYPASS w THROMBOENDARECTOMY Past Anesthesia/Blood Transfusion Reactions: Motion Sickness Past Psychological History: Depression Smoking Status: Former smoker Past Alcohol Use History: Rare Past Drug Use History: None Reported - Past Family History Sister(s) Family Medical History: Cancer Medications and Allergies Home Medications Medication Instructions Recorded Confirmed Type amLODIPine BESYLATE/BENAZEPRIL 1 cap PO DAILY 08/08/20 02/02/25 History [Lotrel 10-20 MG] Aspirin [Adult Low Dose Aspirin EC] 81 mg PO DAILY 03/27/21 02/02/25 History Rosuvastatin [Crestor] 10 mg PO DAILY 03/27/21 02/02/25 History prednisoLONE ACETATE 1% OPHTH 1 drop RIGHT EYE TID 02/02/25 02/02/25 History [Pred Forte 1%] risperiDONE [RisperDAL] 0.5 mg PO DAILY@1200 02/02/25 02/02/25 History risperiDONE [RisperDAL] 1 mg PO HS 02/02/25 02/02/25 History Allergies Allergy/AdvReac Type Severity Reaction Status Date / Time bee venom protein (honey bee) Allergy Rash/Hives Verified 02/02/25 16:44 Physical Exam Vitals: Vital Signs Temp Pulse Pulse Resp BP BP Pulse Ox 02/03/25 13:17 98.6 F 63 18 172/79 95 02/03/25 09:05 65 18 02/03/25 07:11 98.6 F 65 18 168/89 96 02/03/25 02:20 76 142/82 02/03/25 02:00 99.9 F H 56 L 16 95 02/02/25 20:25 98.4 F 57 L 17 156/91 96 02/02/25 20:00 98.4 F 70 18 167/70 96 02/02/25 18:00 57 L 18 165/74 97 02/02/25 17:00 60 18 184/81 95 02/02/25 15:25 59 L 18 177/82 98 Intake and Output 02/02/25 02/03/25 02/03/25 22:59 06:59 14:59 Output Total 100 Balance -100 Output: Urine 100 Other: Voiding Method External Catheter External Catheter Weight 99.79 kg Results CBC & Chem 7: 02/02/25 14:00 02/03/25 05:10 Labs: Abnormal Lab Results - Last 24 Hours (Table) 02/03/25 Range/Units 05:10 Potassium 3.4 L (3.5-5.5) mmol/L Anion Gap 13.10 H (4.00-12.00) mmol/L BUN/Creatinine Ratio 20.71 H (12.00-20.00) Ratio Thrombosis Risk Factor Assmnt - Choose All That Apply Each Risk Factor Represents 2 Points: Age 61-74 years Thrombosis Risk Factor Assessment Total Risk Factor Score: 2 Thrombosis Risk Factor Assessment Level: Low Risk
[2025-02-03] MEDS: POTASSIUM CHLORIDE 20 MEQ in WATER FOR INJECTION 1 100ML.BAG IVPB ONE (19:58)
[2025-02-03] MEDS ORDERED: QUEtiapine 25 MG TAB PO SCH (21:00)
[2025-02-03] MEDS: LORazepam 1 MG/0.5 ML VIAL IV STA (23:32)
[2025-02-04 08:43] LABS: ALT 17 U/L (8-44); AST 34 U/L (13-35); Albumin 3.9 g/dL (3.8-4.9); Albumin/Globulin Ratio 2.44 Ratio (1.60-3.17); Alkaline Phosphatase 59 U/L (41-126); Calcium 9.3 mg/dL (8.7-10.3); Carbon Dioxide 20.9 mmol/L (21.6-31.8); Chloride 106 mmol/L (96-109); Globulin 1.6 g/dL (1.6-3.3); Glucose 95 mg/dL (70-110); Potassium 3.6 mmol/L (3.5-5.5); Sodium 142 mmol/L (135-145); Total Bilirubin 0.9 mg/dL (0.3-1.2); Total Protein 5.5 g/dL (6.2-8.2)
[2025-02-04 08:51] LABS: Basophils # (A) 0.03 X 10*3/uL (0.00-0.10); Basophils % (A) 0.2 %; Eosinophils # (A) 0.07 X 10*3/uL (0.04-0.35); Eosinophils % (A) 0.5 %; HCT 41.4 % (37.2-46.3); HGB 13.4 g/dL (12.0-15.0); Lymphocytes # (A) 1.38 X 10*3/uL (0.90-5.00); Lymphocytes % (A) 9.9 %; MCH 30.2 pg (27.0-32.0); MCHC 32.4 g/dL (32.0-37.0); MCV 93.2 FL (80.0-97.0); Mean Platelet Volume 11.5 FL (9.5-12.2); Monocytes # (A) 1.08 X 10*3/uL (0.20-1.00); Monocytes % (A) 7.7 %; NRBC Per 100 WBC 0 X 10*3/uL (0.00-0.01); Neutrophils # (A) 11.33 X 10*3/uL (1.80-7.70); Neutrophils % (A) 81.3 %; Platelet Count 208 X 10*3/uL (140-440); RBC 4.44 X 10*6/uL (4.10-5.20); RDW 13.7 % (11.5-14.5); WBC 13.95 X 10*3/uL (4.50-10.00)
[2025-02-04] MEDS: ENOXAPARIN 40 MG/0.4 ML SYRINGE SQ SCH (09:14)
--- NOTE | 2025-02-04 16:05 | P.PN ---
Subjective Progress Note Date: 02/04/25 HISTORY OF PRESENT ILLNESS: This is a 74-year-old female with a previous medical history signif icant for hypertension and hypertensive cardiovascular disease, hyperlipidemia, history of Alzheimer dementia, has been under the care of neurology at the [facility], history of abdominal aortic aneurysm status post endovascular graft in 2019, history of tobacco use and dependence quit about 5 years ago, patient presented to the emergency department at [facility] yesterday because her family were not able to reason with her, she was quite obtunded not able to get up on her own, she was quite confused, she ended up coming to the ER at [facility], she had a CT scan of the brain did show evidence of brain atrophy without evidence of acute infarct or bleed, she had a chest x-ray did not show evidence of acute abnormalities, urinalysis was good, but because of that she was admitted to the hospital she was quite combative in the ER she was given Ativan in the emergency department, and she was admitted to the floor, patient was given 1 dose of Seroquel 25 mg at bedtime last night, she has been sleepy ever since, she did receive Risperdal 1 mg last night as well, and she was supposed to receive another Risperdal 0.5 mg at noon today but that was placed on hold for now, patient will be seen in consultation by neurology this is likely related to the effect of medication and worsening dementia geriatric social worker consultation and physical therapy evaluation, I spoke with the family including her daughter and her at the bedside, they were in agreement for the patient to be transferred to subacute rehabilitation, she will need chronic care at this point in time, I had the conversation with comfort/palliative care at this point in time, but this point we will hold off on this continue with current medical care. 02/04: Patient is more awake today, she had an episode of acute agitation yesterday, she did receive Ativan 0.25 mg IV push x 1, she is currently back on Risperdal 1 mg at bedtime and 0.5 mg during the day, continue current treatment plan, family wishes were to consult duodenal hospice at this point in time, we will recommend the patient to be admitted to the hospice house, hopefully in the next 24 hours, we will watch the patient carefully, continue to monitor the patient very closely at this point in time, follow-up with the patient very closely. REVIEW OF SYSTEMS: Constitutional: No documented fever, no chills, no night sweats. No weight change. No weakness, positive for fatigue and lethargy. positive for daytime sleepiness. EENT: No headache. No blurred vision or double vision, no loss of vision. No loss of Hearing, no ringing in the ears, no dizziness. No nasal drainage or congestion. No epistaxis. No sore throat. Lungs: No shortness of breath, no cough, no sputum production. No wheezing. Reports dyspnea with activity. Cardiovascular: No chest pain, no lower extremity edema. No palpitations. No paroxysmal nocturnal dyspnea. No orthopnea. No lightheadedness or dizziness. No syncopal episodes. Abdominal: Reports no abdominal pain. No nausea, vomiting. No diarrhea. No constipation. No bloody or tarry stools reports loss of appetite. Genitourinary: No dysuria, increased frequency, urgency. No urinary retention. Musculoskeletal: No myalgias. No muscle weakness, positive for gait dysfunction, no frequent falls. No back pain. No neck pain. Integumentary: No wounds, no lesions. No rash or pruritus. No unusual bruising. No change in hair or nails. Neurologic: No aphasia. No facial droop. positive for change in mentation. No head injury. No headache. No paralysis. No paresthesia. Psychiatric: No depression. No anxiety. No mood swings. Endocrine: No abnormal blood sugars. No weight change. PHYSICAL EXAMINATION: General: This is a 74-year-old female who is laying down in bed in no apparent distress at this time. HEENT: Head is atraumatic, normocephalic, pupils were equal round reactive to light and recommendation, extraocular muscle movement were intact, sclera nonicteric, conjunctivae were pale, mucous membranes of the mouth are somewhat dry. Neck: Supple, no JVP, normal carotid upstroke bilaterally, no lymphadenopathy. Chest: Decreased breath sounds at the bases, few rhonchi, no expiratory wheezes, no chest wall tenderness, no intercostal retractions. Heart: First heart sound is normal, second heart sounds normal there is systolic ejection murmur 2/6 located in the left sternal border. Abdomen: Soft, nontender, nondistended, positive bowel sounds. Extremities: There is no edema no calf tenderness DP +2 bilaterally. Neurologic examination: Patient is awake however she is confused she does not follow much commands. She moves all her extremities. ASSESSMENT AND PLAN: 1. Metabolic encephalopathy likely related to worsening Alzheimer dementia along with medication side effects including combination of Seroquel and Risperdal. Patient is back to baseline, resume the patient Risperdal 1 mg at bedtime and 0.5 mg during the day, follow-up with the patient very closely. 2. History of Alzheimer dementia with behavioral disturbances. Currently on Risperdal 1 mg at bedtime and 0.5 mg during the day. Has been following with a neurologist at the [facility]. 3. Hypertension and hypertensive cardiovascular disease. Continue patient on amlodipine 10 mg once every day, lisinopril 20 mg orally once every day, start the patient on hydralazine 10 mg IV push every 4 hours as needed for systolic blood pressure greater than 160 monitor the patient blood pressure very closely. 4. Mixed hyperlipidemia. Continue patient on atorvastatin 20 mg orally once every day, monitor lipid panel, 5. History of abdominal aortic aneurysm status post endovascular stent graft. Stable at this time. Continue aspirin 81 mg once every day, continue with ator vastatin 20 mg once every day. 6. Chronic tobacco use and dependence with possible underlying COPD. Stable at this time. 7. DVT prophylaxis. Lovenox 40 mg subcutaneous every 24 hours, bilateral knee- high CORINNE hose. 8. GI prophylaxis. Continue patient on Protonix 40 mg once every day. 9. Hypokalemia status post replacement. 10. Hospice house when paperwork is done. Objective - Vital Signs Vital signs: Vital Signs Temp 98.1 F 02/04/25 13:20 Pulse 68 02/04/25 13:20 Resp 20 02/04/25 13:20 BP 137/72 02/04/25 13:20 Pulse Ox 96 02/04/25 13:20 FiO2 Intake & Output 02/03/25 02/04/25 02/04/25 18:59 06:59 18:59 Other: Voiding Method External Catheter External Catheter Diaper Incontinent External Catheter # Voids 1 - Labs CBC & Chem 7: 02/04/25 03:13 02/04/25 03:13 Labs: Abnormal Lab Results - Last 24 Hours (Table) 02/04/25 02/04/25 Range/Units 03:13 03:13 WBC 13.95 H (4.50-10.00) X 10*3/uL Immature Gran # 0.06 H (0.00-0.04) X 10*3/uL Neutrophils # 11.33 H (1.80-7.70) X 10*3/uL Monocytes # 1.08 H (0.20-1.00) X 10*3/uL Carbon Dioxide 20.9 L (21.6-31.8) mmol/L Anion Gap 15.10 H (4.00-12.00) mmol/L BUN/Creatinine Ratio 25.00 H (12.00-20.00) Ratio Total Protein 5.5 L (6.2-8.2) g/dL
--- NOTE | 2025-02-05 10:05 | P.DS ---
Providers Date of admission: 02/02/25 17:36 Expected date of discharge: 02/05/25 Attending physician: Felix Fuentes Primary care physician: Felix Fuentes Hospital Course: HISTORY OF PRESENT ILLNESS: This is a 74-year-old female with a previous medical history significant for hypertension and hypertensive cardiovascular disease, hyperlipidemia, history of Alzheimer dementia, has been under the care of neurology at the [facility], history of abdominal aortic aneurysm status post endovascular graft in 2019, history of tobacco use and dependence quit about 5 years ago, patient presented to the emergency department at [facility] yesterday because her family were not able to reason with her, she was quite obtunded not able to get up on her own, she was quite confused, she ended up coming to the ER at [facility], she had a CT scan of the brain did show evidence of brain atrophy without evidence of acute infarct or bleed, she had a chest x-ray did not show evidence of acute abnormalities, urinalysis was good, but because of that she was admitted to the hospital she was quite combative in the ER she was given Ativan in the emergency department, and she was admitted to the floor, patient was given 1 dose of Seroquel 25 mg at bedtime last night, she has been sleepy ever since, she did receive Risperdal 1 mg last night as well, and she was supposed to receive another Risperdal 0.5 mg at noon today but that was placed on hold for now, patient will be seen in consultation by neurology this is likely related to the effect of medication and worsening dementia manager social responsibility consultation and physical therapy evaluation, I spoke with the family including her daughter and her at the bedside, they were in agreement for the patient to be transferred to subacute rehabilitation, she will need chronic care at this point in time, I had the conversation with comfort/palliative care at this point in time, but this point we will hold off on this continue with current medical care. 02/04: Patient is more awake today, she had an episode of acute agitation yesterday, she did receive Ativan 0.25 mg IV push x 1, she is currently back on Risperdal 1 mg at bedtime and 0.5 mg during the day, continue current treatment plan, family wishes were to consult duodenal hospice at this point in time, we will recommend the patient to be admitted to the hospice house, hopefully in the next 24 hours, we will watch the patient carefully, continue to monitor the patient very closely at this point in time, follow-up with the patient very closely. 02/05: Patient is laying down in bed and does not appear to be in acute distress, she had a bad night yesterday, she did receive her Risperdal, will continue with that, patient is signed up for [facility] and she will be moved to [facility] later on today, will prepare her discharge at this point in time, I will follow-up with the patient while she is in hospice. Discharge diagnoses: 1. Metabolic encephalopathy likely related to worsening Alzheimer dementia along with medication side effects including combination of Seroquel and Risperdal. She is back to baseline. 2. History of Alzheimer dementia with behavioral disturbances. 3. Hypertension and hypertensive cardiovascular disease. 4. Mixed hyperlipidemia. 5. History of abdominal aortic aneurysm status post endovascular stent graft. 6. Chronic tobacco use and dependence with possible underlying COPD. 7. Hypokalemia Patient Condition at Discharge: Serious Plan - Discharge Summary Discharge Rx Participant: Yes New Discharge Prescriptions: Continue amLODIPine BESYLATE/BENAZEPRIL [Lotrel 10-20 MG] 1 cap PO DAILY Aspirin [Adult Low Dose Aspirin EC] 81 mg PO DAILY prednisoLONE ACETATE 1% OPHTH [Pred Forte 1%] 1 drop RIGHT EYE TID risperiDONE [RisperDAL] 1 mg PO HS risperiDONE [RisperDAL] 0.5 mg PO DAILY@1200 Discontinued Rosuvastatin [Crestor] 10 mg PO DAILY Discharge Medication List amLODIPine BESYLATE/BENAZEPRIL [Lotrel 10-20 MG] 1 cap PO DAILY 08/08/20 [History] Aspirin [Adult Low Dose Aspirin EC] 81 mg PO DAILY 03/27/21 [History] prednisoLONE ACETATE 1% OPHTH [Pred Forte 1%] 1 drop RIGHT EYE TID 02/02/25 [History] risperiDONE [RisperDAL] 0.5 mg PO DAILY@1200 02/02/25 [History] risperiDONE [RisperDAL] 1 mg PO HS 02/02/25 [History] Follow up Appointment(s)/Referral(s): Hosp[facility] [REFERRING] - As Needed ([facility] home) Felix Fuentes MD [Primary Care Provider] - As Needed Activity/Diet/Wound Care/Special Instructions: [facility] home Discharge Disposition: [facility] TO HOSPICE MED FACILTY
[2025-02-05 10:25] VITALS: BP 132/81; PULSE 49; RESP 22; TEMP 98.6
== END 2025-02-05 14:39 | disposition hospice, inpatient (51) ==
LOC: EC 13:46 → 4SSUR 17:36
PROVIDERS: ADMIT Internal Medicine; ATTEND Internal Medicine
DX: G93.41 Metabolic encephalopathy (principal); G30.9 Alzheimer's disease, unspecified; F02.83 Dementia in other diseases classified elsewhere, unspecified severity, with mood disturbance; E87.6 Hypokalemia; I11.9 Hypertensive heart disease without heart failure; E78.2 Mixed hyperlipidemia; F32.A Depression, unspecified; Z86.79 Personal history of other diseases of the circulatory system; Z87.891 Personal history of nicotine dependence; Z79.82 Long term (current) use of aspirin; Z79.899 Other long term (current) drug therapy
CPT/HCPCS: 96376; 96365; 96366; 96372; 96374; 99285; 36415; 93005; 97165; 80053 ×2; 80048; 82140; 84484; 85025 ×2; 85610; 85730; 81003; 71046; 70450; G0378 ×4; J2060 ×2; J3480; J1650